=== PATIENT | male | born 1935 | race Caucasian/White ===

== ENCOUNTER → 2017-12-01 | Outpatient (CLI) | payer MEDICARE, BC ==
--- NOTE | 2017-12-01 09:04 | Diagnostic Imaging Report ---
PROCEDURE:ABDOMINAL ULTRASOUND COMPARISON:None. INDICATIONS:Abdomen pain FINDINGS: Liver: 14.4 cm in length in the right midclavicular line. Normal parenchymal echogenicity. Main portal vein: 0.9 cm in caliber. Hepatopedal flow. Gallbladder: Minimal echogenic sludge in the dependent portion. No shadowing calculus, wall thickening, or pericholecystic fluid. Common Bile Duct: 0.3 cm in caliber. No echogenic filling defect. Sonographic Sinclair's sign: Reported as negative. Right kidney: 12 cm in length. No solid or cystic mass, echogenic calculi, or hydronephrosis. Normal renal cortical echogenicity. Left kidney: 12.1 cm in length. No solid or cystic mass, echogenic calculi, or hydronephrosis. Normal renal cortical echogenicity. Spleen: 12.1 cm in length. Pancreas: The visualized portions of the pancreas are normal. Inferior vena cava: Patent. Aorta: Poorly visualized secondary to overlying bowel gas. Ascites: None. CONCLUSION: Small amount of echogenic sludge within the gallbladder. No cholelithiasis or sonographic evidence of acute cholecystitis. Dictated by: Nate Renae M.D. on 12/01/2017 at 9:12 Electronically approved by: Nate Renae M.D. on 12/01/2017 at 9:12
== END ==
LOC: US 07:31
PROVIDERS: ATTEND Internal Medicine Gastroenterology
DX: R10.9 Unspecified abdominal pain (principal)
CPT/HCPCS: 76700

== ENCOUNTER → 2017-12-09 | Outpatient (CLI) | payer MEDICARE, BC ==
[~2017-12-09] MED LIST: SINCALIDE 3 MCG/VIAL INJ ONE
--- NOTE | 2017-12-09 18:47 | Diagnostic Imaging Report ---
Hepatobiliary Scan with Gallbladder Ejection Fraction Clinical information: 82 M with abdominal pain; sludge seen in gallbladder on ultrasound Technique: Following intravenous administration of 6.6 millicuries of Tc-99m mebrofenin, dynamic images of the abdomen in the anterior projection were obtained through 30 minutes. Sincalide (CCK analog) 2.4 micrograms was administered intravenously over 30 minutes with additional imaging for determination of gallbladder ejection fraction. Discussion: Perfusion of the liver is normal. Extraction of tracer by the liver parenchyma is normal. Tracer appears promptly within the biliary tract. The gallbladder begins to fill at 18 minutes post injection of tracer and fills adequately. Tracer is seen in the small bowel during the sincalide infusion. There is no contractile response by the gallbladder to the pharmacologic dose of sincalide. No emptying of the gallbladder occurs during the 30 minute infusion. Impression: 1. Filling of the gallbladder excludes acute cystic duct obstruction/acute cholecystitis. 2. The gallbladder ejection fraction is undefined as there is no emptying of the gallbladder during the infusion of sincalide. 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 Signed by: Dr. Bia Dowd M.D. on 12/09/2017 6:43 PM
== END ==
LOC: NM 10:32
PROVIDERS: ATTEND Internal Medicine Gastroenterology
DX: K82.9 Disease of gallbladder, unspecified (principal)
CPT/HCPCS: 78227; A9537; J2805

== ENCOUNTER → 2018-01-25 | Outpatient (CLI) | payer MEDICARE, BC ==
[2018-01-25 11:01] LABS: BASOPHILS % 0.7 % (0.0-1.0); EOSINOPHILS # (AUTO) 0.2 (0.0-0.4); EOSINOPHILS % 2.7 % (0.0-6.0); HEMATOCRIT 43.2 % (38.2-49.6); HEMOGLOBIN 14.2 g/dL (14.0-18.0); LYMPHOCYTES # (AUTO) 1.5 (1.0-3.2); LYMPHOCYTES % 26.5 % (18.0-39.1); MEAN CORPUSCULAR HEMOGLOBIN 29.4 pg (28-32); MEAN CORPUSCULAR HGB CONC 32.9 g/dL (31-35); MEAN CORPUSCULAR VOLUME 89.4 fL (81-99); MONOCYTES # (AUTO) 0.6 (0.2-0.8); MONOCYTES % 10.4 % (4.4-11.3); NEUTROPHILS # (AUTO) 3.3 (2.1-6.9); NEUTROPHILS % 59.5 % (38.7-80.0); PLATELET COUNT 176 x10e3/uL (140-360); RED BLOOD COUNT 4.83 x10e6/uL (4.3-5.7); RED CELL DISTRIBUTION WIDTH 13.8 % (11.7-14.4)
[2018-01-25 11:21] LABS: ALANINE AMINOTRANSFERASE 11 IU/L (0-55); ALBUMIN 3.9 g/dL (3.5-5.0); ALBUMIN/GLOBULIN RATIO 1.1 (0.8-2.0); ALKALINE PHOSPHATASE 57 IU/L (40-150); BLOOD UREA NITROGEN 10 mg/dL (7-26); BUN/CREATININE RATIO 9 (6-25); CALCIUM 9.5 mg/dL (8.4-10.2); CARBON DIOXIDE 28 mmol/L (22-29); CHLORIDE 106 mmol/L (98-107); CHOLESTEROL 155 MD/DL (0-199); CREATININE, SERUM 1.14 mg/dL (0.72-1.25); EST GLOMERULAR FILTRATION RATE > 60 ML/MIN (60-); GLUCOSE 105 mg/dL (74-118); HDL CHOLESTEROL 52 MG/DL (40-60); LDL CHOLESTEROL 91 MG/DL (60-130); SODIUM 142 mmol/L (136-145); TRIGLYCERIDES 58 MG/DL (0-149)
== END ==
LOC: LAB 10:42
PROVIDERS: ATTEND Internal Medicine Pulmonary Disease
DX: E11.9 Type 2 diabetes mellitus without complications (principal)
CPT/HCPCS: 36415; 80053; 80061; 82044; 84152; 85025

== ENCOUNTER → 2018-08-25 | Outpatient (CLI) | payer MEDICARE, BC ==
[2018-08-25 09:31] LABS: FOLATE 17.8 ng/mL (7.0-15.4)
== END ==
LOC: LAB 08:21
PROVIDERS: ATTEND Internal Medicine Pulmonary Disease
DX: E53.8 Deficiency of other specified B group vitamins (principal)
CPT/HCPCS: 82607; 82746; 83090; 83921

== ENCOUNTER → 2018-09-03 | Outpatient (CLI) | payer MEDICARE, BC ==
[2018-09-03 08:30] LABS: BASOPHILS % 0.5 % (0.0-1.0); EOSINOPHILS # (AUTO) 0.2 (0.0-0.4); EOSINOPHILS % 3.6 % (0.0-6.0); HEMATOCRIT 45.1 % (38.2-49.6); HEMOGLOBIN 14.7 g/dL (14.0-18.0); LYMPHOCYTES # (AUTO) 1.5 (1.0-3.2); LYMPHOCYTES % 24.5 % (18.0-39.1); MEAN CORPUSCULAR HEMOGLOBIN 30.2 pg (28-32); MEAN CORPUSCULAR HGB CONC 32.6 g/dL (31-35); MEAN CORPUSCULAR VOLUME 92.8 fL (81-99); MONOCYTES # (AUTO) 0.6 (0.2-0.8); MONOCYTES % 10.2 % (4.4-11.3); NEUTROPHILS # (AUTO) 3.7 (2.1-6.9); NEUTROPHILS % 60.9 % (38.7-80.0); PLATELET COUNT 208 x10e3/uL (140-360); RED BLOOD COUNT 4.86 x10e6/uL (4.3-5.7); RED CELL DISTRIBUTION WIDTH 13.2 % (11.7-14.4)
[2018-09-03 08:51] LABS: ANION GAP 13.4 mmol/L (8-16); BLOOD UREA NITROGEN 7 mg/dL (7-26); BUN/CREATININE RATIO 7 (6-25); CALCIUM 9.7 mg/dL (8.4-10.2); CARBON DIOXIDE 27 mmol/L (22-29); CHLORIDE 106 mmol/L (98-107); CHOLESTEROL 150 MD/DL (0-199); CREATININE, SERUM 1.05 mg/dL (0.72-1.25); EST GLOMERULAR FILTRATION RATE > 60 ML/MIN (60-); GLUCOSE 84 mg/dL (74-118); POTASSIUM 4.4 mmol/L (3.5-5.1); SODIUM 142 mmol/L (136-145)
== END ==
LOC: LAB 08:04
PROVIDERS: ATTEND Internal Medicine Pulmonary Disease
DX: E11.9 Type 2 diabetes mellitus without complications (principal)
CPT/HCPCS: 36415; 80048; 82044; 82465; 83036; 84152; 85025

== ENCOUNTER 2019-02-05 11:33 | Inpatient (IN) | payer MEDICARE, BC ==
[~2019-02-05] VITALS: Ht 177.8 cm; Wt 102.1 kg
--- OUTSIDE RECORDS SUMMARY | 2019-02-05 11:35 | XMS REPORT ---
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 Allergies, Adverse Reactions, Alerts This patient has no known allergies or adverse reactions. Medications This patient has no known medications. Results Test Description Test Time Test Comments Text Results Atomic Results Result Comments HEPTOBILIARY W PHARM [place] [address] Patient Name: TORI INMAN MR #: [id number] : 1935 Age/Sex: 82/M Req #: [id number] Adm Physician: Ordered by: PEACE GONZALEZ MD Report #: [id number] Location: [place] Room/Bed: Procedure: [id number] NM/HEPTOBILIARY W PHARM Exam Date: 12/09/17 Exam Time: 1200 REPORT STATUS: Signed Hepatobiliary Scan with Gallbladder Ejection Fraction Clinical information: 82 M with abdominal pain; sludge seen in gallbladder on ultrasound Technique: Following intravenous administration of 6.6 millicuries of Tc-99m mebrofenin, dynamic images of the abdomen in the anterior projection were obtained through 30 minutes. Sincalide (CCK analog) 2.4 micrograms was administered intravenously over 30 minutes with additional imaging for determination of gallbladder ejection fraction. Discussion: Perfusion of the liver is normal. Extraction of tracer by the liver parenchyma is normal. Tracer appears promptly within the biliary tract. The gallbladder begins to fill at 18 minutes post injection of tracer and fills adequately. Tracer is seen in the small bowel during the sincalide infusion. There is no contractile response by the gallbladder to the pharmacologic dose of sincalide. No emptying of the gallbladder occurs during the 30 minute infusion. Impression: 1. Filling of the gallbladder excludes acute cystic duct obstruction/acute cholecystitis. 2. The gallbladder ejection fraction is undefined as there is no emptying of the gallbladder during the infusion of sincalide. 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 Signed by: Dr. Alonzo Dowd M.D. on 12/09/2017 6:43 PM Dictated By: ALONZO DOWD MD 42 Transcribed By: LYNDSEY on 12/09/171842 COPY TO: PEACE GONZALEZ MD US ABDOMEN COMPLETE [place] [address] Patient Name: TORI INMAN MR #: [id number] : 1935 Age/Sex: 82/M Req #: [id number] Adm Physician: Ordered by: PEACE GONZALEZ MD Report #: [id number] Location: US Room/Bed: Procedure: [id number] US/US ABDOMEN COMPLETE Exam Date: 12/01/17 Exam Time: 814 REPORT STATUS: Signed PROCEDURE: ABDOMINAL ULTRASOUND COMPARISON: None. INDICATIONS: Abdomen pain FINDINGS: Liver: 14.4 cm in length in the right midclavicular line. Normal parenchymal echogenicity. Main portal vein: 0.9 cm in caliber. Hepatopedal flow. Gallbladder: Minimal echogenic sludge in the dependent portion. No shadowing calculus, wall thickening, or pericholecystic fluid. Common Bile Duct: 0.3 cm in caliber. No echogenic filling defect. Sonographic Sinclair's sign: Reported as negative. Right kidney: 12 cm in length. No solid or cystic mass, echogenic calculi, or hydronephrosis. Normal renal cortical echogenicity. Left kidney: 12.1 cm in length. No solid or cystic mass, echogenic calculi, or hydronephrosis. Normal renal cortical echogenicity. Spleen: 12.1 cm in length. Pancreas: The visualized portions of the pancreas are normal. Inferior vena cava: Patent. Aorta: Poorly visualized secondary to overlying bowel gas. Ascites: None. CONCLUSION: Small amount of echogenic sludge within the gallbladder. No cholelithiasis or sonographic evidence of acute cholecystitis. Dictated by: Pablo Montgomery M.D. on 12/01/2017 at 9:12 Electronically approved by: Pablo Montgomery M.D. on 12/01/2017 at 9:12 Dictated By: PABLO MONTGOMERY MD 1 Transcribed By: JOSEY on 12/01/17911 COPY TO: PEACE GONZALEZ MD
[2019-02-05 12:26] LABS: BASOPHILS % 0.5 % (0.0-1.0); EOSINOPHILS # (AUTO) 0.2 (0.0-0.4); EOSINOPHILS % 1.8 % (0.0-6.0); HEMATOCRIT 43.6 % (38.2-49.6); HEMOGLOBIN 14.2 g/dL (14.0-18.0); LYMPHOCYTES # (AUTO) 1.1 (1.0-3.2); MEAN CORPUSCULAR HEMOGLOBIN 29.3 pg (28-32); MEAN CORPUSCULAR HGB CONC 32.6 g/dL (31-35); MEAN CORPUSCULAR VOLUME 90.1 fL (81-99); MONOCYTES % 11.8 % (4.4-11.3); NEUTROPHILS # (AUTO) 6.1 (2.1-6.9); NEUTROPHILS % 72.7 % (38.7-80.0); PLATELET COUNT 231 x10e3/uL (140-360); RED BLOOD COUNT 4.84 x10e6/uL (4.3-5.7); RED CELL DISTRIBUTION WIDTH 13.4 % (11.7-14.4)
[2019-02-05] MEDS ORDERED: DILTIAZEM HCL 5 MG/ML 5 ML VIAL IV NR (12:29)
[2019-02-05] MEDS ORDERED: SODIUM CHLORIDE 0.9% 500ML 500 ML IV ONE (12:30)
[2019-02-05] MEDS ORDERED: DILTIAZEM HCL VIAL 5 ML ONE (12:40)
--- NOTE | 2019-02-05 12:41 | NUR ---
RECEIVED REPORT FROM SANAZ Linares
[2019-02-05 12:44] LABS: INR 0.96; PROTHROMBIN TIME 13.3 seconds (11.9-14.5)
[2019-02-05 12:45] LABS: PARTIAL THROMBOPLASTIN TIME 37.6 seconds (23.8-35.5)
[2019-02-05 12:49] LABS: CLARITY,URINE CLEAR (CLEAR); COLOR,URINE YELLOW (YELLOW); KETONES,URINE NEGATIVE (NEGATIVE); LEUKOCYTE ESTERASE ,URINE NEGATIVE (NEGATIVE); NITRITE,URINE NEGATIVE (NEGATIVE); PROTEIN,URINE DIPSTICK NEGATIVE (NEGATIVE); URINE UROBILINOGEN 0.2 mg/dL (0.2 - 1)
[2019-02-05 12:49] LABS: ALANINE AMINOTRANSFERASE 9 IU/L (0-55); ALBUMIN 3.5 g/dL (3.5-5.0); ALKALINE PHOSPHATASE 67 IU/L (40-150); BLOOD UREA NITROGEN 8 mg/dL (7-26); BUN/CREATININE RATIO 9 (6-25); CALCIUM 9.6 mg/dL (8.4-10.2); CARBON DIOXIDE 25 mmol/L (22-29); CHLORIDE 103 mmol/L (98-107); CREATINE KINASE 37 IU/L (30-200); CREATININE, SERUM 0.92 mg/dL (0.72-1.25); EST GLOMERULAR FILTRATION RATE > 60 ML/MIN (60-); GLUCOSE 98 mg/dL (74-118); MAGNESIUM 1.8 MG/DL (1.3-2.1); SODIUM 137 mmol/L (136-145)
[2019-02-05 12:50] LABS: BILIRUBIN,URINE NEGATIVE (NEGATIVE)
[2019-02-05 13:11] LABS: EPITHELIAL CELLS,URINE MODERATE /LPF; WBC,URINE (MAN) 0-5 /HPF (0-5)
--- NOTE | 2019-02-05 13:54 | Diagnostic Imaging Report ---
EXAMINATION: CHEST SINGLE (PORTABLE) COMPARISON: None INDICATION: ^chest pain, SOB ^[id number] ^1306 ^Y DISCUSSION: Frontal view of the chest obtained at 1303 hours. HEART AND MEDIASTINUM: The heart is top normal in size to mildly enlarged. LINES: None. LUNGS: Lung volumes are low. There are right basilar airspace opacities suggestive of pneumonia or atelectasis. Pulmonary interstitium is normal. PLEURA: No pneumothorax. Small bilateral pleural effusions. BONES AND SOFT TISSUES: No focal osseous lesion. The soft tissues are normal. IMPRESSION: Low lung volumes with bibasilar atelectasis and small pleural effusions. Underlying pneumonia cannot be excluded. Cardiomegaly. No evidence of pulmonary edema. Signed by: Dr. Yanira Kong MD on 02/05/2019 1:50 PM
[2019-02-05] MEDS ORDERED: DILTIAZEM HCL 60 MG TAB PO SCH ×2 (14:00)
[2019-02-05] MEDS: ENOXAPARIN SODIUM INJ 100 MG/ML SYR SC SCH (14:18)
[2019-02-05] MEDS ORDERED: DILTIAZEM HCL ER 120 MG CAP PO NR (15:45)
[2019-02-05] MEDS ORDERED: MORPHINE SULFATE 2 MG/ML SYR 1ML IV PRN (15:45)
[2019-02-05] MEDS ORDERED: DEXTROSE 50% SYRINGE 50 ML IV PRN (15:45)
--- NOTE | 2019-02-05 16:13 | Diagnostic Imaging Report ---
CT chest pulmonary embolism protocol CPT code: 91038 INDICATION: ^PE PROTOCOL ^[id number] ^1430 TECHNIQUE: Thin collimation axial images obtained through the level of the pulmonary arteries with additional imaging through the chest following the uneventful administration of 100 cc of low osmolar, nonionic intravenous contrast. Images reconstructed into coronal and sagittal MIPs for complete evaluation of the tortuous and overlapping pulmonary vascular structures and to reduce patient radiation dose. RADIATION DOSE: Total DLP: 602.82 mGy*cm Estimated effective dose: (DLP x 0.015 x size factor) mSv CTDIvol has been reviewed. It is below the limits set by the Radiation Protocol Committee (RPC). Dose reduction techniques used: Automated exposure control, adjustment of the mAs and/or kVp according to patient size, standardized low-dose protocol, and/or iterative reconstruction technique. COMPARISON: Chest x-ray 1303 hours. FINDINGS: Pulmonary artery: No filling defects are appreciated within the main, left, right, lobar or visualized segmental pulmonary arteries to suggest embolism. Main pulmonary artery measures 2.4 cm in diameter. Aorta: The thoracic aorta is not aneurysmal with diffuse mural calcifications. Lymph nodes: No enlarged axillary or supraclavicular lymph nodes. Mediastinal lymph nodes are increased in number and measure up to 1.3 cm in the AP window. A right paratracheal lymph node measures 1.4 cm. Hilar lymph nodes measure up to 1.2 cm. Thyroid: Normal in size without mass in the visualized parenchyma.. Mediastinum: The heart is enlarged. No pericardial effusion. Moderate burden of coronary artery atherosclerosis. The esophagus is collapsed. Lungs: Right Lung: Diffusely hyperinflated at baseline with mild interstitial thickening and diffuse bronchial wall thickening. There is rounded atelectasis of the majority of the lower lobe and atelectasis of the lateral aspect of the middle lobe.. Left Lung: Diffusely hyperinflated baseline with mild interstitial thickening and diffuse bronchial wall thickening. There is lower lobe atelectasis surrounding multiple uptake calcified granulomata. Pleura: Posterior and lateral right pleural effusion measures 5.2 cm. There is mild thickening of the parietal pleura suggestive of chronicity. Left pleural effusion measures 3.1 cm. No enhancement of the visceral or parietal pleura. No conclusive evidence of pleural thickening. Abdomen: Fatty atrophy of the pancreas. No mass or lymphadenopathy in the visualized upper abdomen. Bones: Mild degenerative changes of the spine. No focal osseous lesions. IMPRESSION: 1. No evidence of pulmonary embolus. Prominent main pulmonary artery is suggestive of pulmonary artery hypertension. 2. Large right pleural effusion with mild pleural thickening suggestive of chronicity. There is rounded atelectasis of the right lower lobe and partial atelectasis of the middle lobe. 3. Moderate sized left pleural effusion with associated atelectasis. No CT evidence of long-standing effusion. 4. Interstitial edema and bronchial wall thickening suggestive of bronchitis. Pulmonary hyperinflation suggestive of COPD. 4. Cardiomegaly and atherosclerosis. Signed by: Dr. Yanira Kong MD on 02/05/2019 4:09 PM
[2019-02-05] MEDS ORDERED: DEXTROSE 50% SYRINGE 50 ML IV ONE (16:19)
--- NOTE | 2019-02-05 16:26 | NUR ---
PEDRO LUIS Linares CALLED BACK TO UPDATE ON PATIENTS MEDICATION AND BLOOD SUGAR K[employer]EN CALLED FOR FOOD TRAY, PATIENT GIVEN 1/[address] HALL EVALUATING PATIENT
[2019-02-05] MEDS ORDERED: LISINOPRIL2.5 MG PO (16:30)
[2019-02-05] MEDS: INSULIN LISPRO 100 UNIT/1 ML 3ML VIAL SQ SCH ×2 (16:30→21:00)
[2019-02-05] MEDS ORDERED: TAMSULOSIN HCL0.4 MG PO (16:30)
[2019-02-05] MEDS ORDERED: PRAVASTATIN SOD20 MG PO (16:30)
[2019-02-05] MEDS ORDERED: OMEPRAZOLE40 MG PO (16:30)
[2019-02-05] MEDS ORDERED: GLIPIZIDE ER5 MG PO (16:30)
--- NOTE | 2019-02-05 16:40 | NUR ---
Patient admitted to unit from ER. Patient arrived via stretcher. Patient is AOOx3. Lung mckeon clear to auscultation. Bowel sounds present x4. No edema noted. Patient c/o chest pain that started yesterday noted to the left side of chest. No radiating pain. Left forearm IV in place. Patient has a hearing aide in the left ear, wears glasses and dentures. Family at bedside. NO s/s of distress noted.
--- NOTE | 2019-02-05 17:00 | NUR ---
Call placed to Dr. Hamlin to inform of CT results. informed that he would come by later to round and see patient
[2019-02-05 17:24] VITALS: BP 134/77
[2019-02-05 17:27] VITALS: BP 134/77
[2019-02-05] MEDS ORDERED: ASPIR 8181 MG PO (17:57)
[2019-02-05] MEDS: FAMOTIDINE 20 MG/2 ML VIAL IV SCH (18:10)
--- NOTE | 2019-02-05 19:50 | NUR ---
DR GONZALES IN UNIT ROUNDING ON PT AT THIS TIME,NOTIFIED DR GONZALES OF PT BP 170/76,DR GONZALES STATED THAT HE WILL RESTART PT'S HOME MEDICATIONS.
[2019-02-05] MEDS: FUROSEMIDE INJ 10 MG/ML 4 ML VIAL IV SCH (20:45)
[2019-02-05] MEDS: TAMSULOSIN HCL 0.4 MG CAP PO SCH (20:46)
[2019-02-05 20:47] VITALS: BP 134/77
[2019-02-05] MEDS: PRAVASTATIN 20 MG TAB PO SCH (20:47)
[2019-02-05 20:53] VITALS: BP 170/76
[2019-02-05 21:01] LABS: CREATINE KINASE MB 1.1 ng/mL (0-5.0)
[2019-02-06] VITALS (8 sets, daily range): BP systolic 119–150; BP diastolic 65–82
[2019-02-06] MEDS: IPRATROPIUM BROMIDE 0.02% 2.5 ML NEB NEB SCH ×4 (00:15→21:00)
[2019-02-06] MEDS: ENOXAPARIN SODIUM INJ 100 MG/ML SYR SC SCH (02:09)
[2019-02-06] MEDS: FAMOTIDINE 20 MG/2 ML VIAL IV SCH ×2 (04:30→15:46)
[2019-02-06 05:53] LABS: BASOPHILS # (AUTO) 0.1 (0.0-0.1); BASOPHILS % 0.7 % (0.0-1.0); EOSINOPHILS # (AUTO) 0.2 (0.0-0.4); EOSINOPHILS % 2.8 % (0.0-6.0); HEMATOCRIT 40.4 % (38.2-49.6); HEMOGLOBIN 13.3 g/dL (14.0-18.0); LYMPHOCYTES # (AUTO) 1.3 (1.0-3.2); MEAN CORPUSCULAR HEMOGLOBIN 29.7 pg (28-32); MEAN CORPUSCULAR HGB CONC 32.9 g/dL (31-35); MEAN CORPUSCULAR VOLUME 90.2 fL (81-99); MONOCYTES # (AUTO) 1.2 (0.2-0.8); MONOCYTES % 16.1 % (4.4-11.3); NEUTROPHILS # (AUTO) 4.5 (2.1-6.9); NEUTROPHILS % 62.1 % (38.7-80.0); PLATELET COUNT 223 x10e3/uL (140-360); RED BLOOD COUNT 4.48 x10e6/uL (4.3-5.7); RED CELL DISTRIBUTION WIDTH 13.4 % (11.7-14.4)
[2019-02-06 06:16] LABS: ALANINE AMINOTRANSFERASE 9 IU/L (0-55); ALBUMIN 3.1 g/dL (3.5-5.0); ALBUMIN/GLOBULIN RATIO 0.9 (0.8-2.0); ALKALINE PHOSPHATASE 58 IU/L (40-150); ANION GAP 9.7 mmol/L (8-16); BLOOD UREA NITROGEN 9 mg/dL (7-26); BUN/CREATININE RATIO 10 (6-25); CALCIUM 9.4 mg/dL (8.4-10.2); CARBON DIOXIDE 26 mmol/L (22-29); CHLORIDE 100 mmol/L (98-107); CHOL/HDL RATIO 2.7 (3.9-4.7); CHOLESTEROL 128 MD/DL (0-199); CREATININE, SERUM 0.89 mg/dL (0.72-1.25); EST GLOMERULAR FILTRATION RATE > 60 ML/MIN (60-); GLUCOSE 100 mg/dL (74-118); HDL CHOLESTEROL 48 MG/DL (40-60); LDL CHOLESTEROL 66 MG/DL (60-130); POTASSIUM 3.7 mmol/L (3.5-5.1); SODIUM 132 mmol/L (136-145); TRIGLYCERIDES 69 MG/DL (0-149)
--- NOTE | 2019-02-06 07:02 | NUR ---
REPORT GIVEN TO ONCOMING NURSE,WALKING ROUNDS MADE.PT RESTING IN BED WITH NO S/S OF DISTRESS.
--- NOTE | 2019-02-06 07:18 | NUR ---
Rcvd patient in report this am. Patient is asleep in bed at this time. no s/s of distress noted
[2019-02-06 07:21] LABS: CREATINE KINASE MB 0.8 ng/mL (0-5.0)
[2019-02-06] MEDS: INSULIN LISPRO 100 UNIT/1 ML 3ML VIAL SQ SCH ×4 (07:30→20:52)
[2019-02-06] MEDS: FUROSEMIDE INJ 10 MG/ML 4 ML VIAL IV SCH (08:58)
[2019-02-06] MEDS: ASPIRIN 81 MG ENTERIC COATED PO SCH (08:58)
[2019-02-06] MEDS: LISINOPRIL 2.5 MG TAB PO SCH (08:58)
[2019-02-06] MEDS: PANTOPRAZOLE SOD 40 MG TABEC PO SCH (08:58)
[2019-02-06] MEDS: DILTIAZEM HCL ER 120 MG CAP PO SCH (08:58)
--- NOTE | 2019-02-06 08:58 | History and Physical ---
CHIEF COMPLAINT: Shortness of breath. HISTORY OF PRESENT ILLNESS: Mr. Sandoval is an 83-year-old male, regular patient of Dr. Nate Bettencourt. The patient came in with shortness of breath, going on for 2 days, yet last night was worse, so he decided to come into the emergency room. 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 He quit smoking 30 years ago. He denies any chest pain, nausea, or vomiting. He was in atrial fibrillation when he came in. He underwent a CTA of the chest in the emergency room, which showed no pulmonary embolism, however, it showed bilateral pleural effusion, large right-sided effusion with pleural thickening, also round atelectasis. He is short of breath on exertion, but right now he is stable. His heart rate is in the 70s and is irregular. He is in atrial fibrillation. REVIEW OF SYSTEMS: GENERAL: Denies any fever or chills. HEAD: Denies any head trauma. ENT: Denies any earaches. CVS: Denies any chest pain. RESPIRATORY: Shortness of breath. GI: Denies any nausea or vomiting. The rest of the review of systems are negative except as stated in the HPI. PAST MEDICAL HISTORY: Asbestos exposure, possible COPD, diabetes, and hypertension. PAST SURGICAL HISTORY: Rotator cuff surgery. FAMILY AND SOCIAL HISTORY: Ex-smoker, smoked for 30 years, quit in 1997. History of asbestos exposure. Lives with his . Currently does not work. PHYSICAL EXAMINATION: VITAL SIGNS: Temperature 97.3, pulse of 98, blood pressure 134/77, respiratory rate of 18, and O2 saturation 97% on room air. HEENT: Head is atraumatic, normocephalic. CHEST: Reduced air entry bilaterally and crackles on the bases. HEART: S1 and S2 audible. ABDOMEN: Soft and nontender. EXTREMITIES: No pedal edema. NEUROLOGIC: He is awake and alert. LABORATORY DATA: Sodium 137, potassium 4.0, chloride 103, BUN 8, and creatinine 0.92. BNP 283. White count of 8.4, hemoglobin 14.2, and platelets 231. INR is 13.3. CT of the chest, negative for PE, large pleural effusions. ASSESSMENT/PLAN: Mr. Sandoval is an 83-year-old male with shortness of breath, no fever or chills, bilateral pleural effusions, history of asbestos exposure, no history of cardiomyopathy or heart disease and no history of atrial fibrillation. CURRENT PROBLEMS: 1. New onset atrial fibrillation, possibly could be due to dyspnea and bilateral pleural effusions. 2. Bilateral pleural effusions, may have developed congestive heart failure. Echocardiogram has been ordered. 3. History of asbestos exposure that could have caused pleural effusions as well. 4. Possible history of chronic obstructive pulmonary disease. He is ex-smoker. 5. Hypertension. PLAN: 1. I have counseled for thoracentesis. 2. Cardiology consult for new onset atrial fibrillation. 3. We will start the patient on anticoagulation with Lovenox. 4. I will start the patient on IV Lasix as well. 5. Sliding scale insulin for diabetes. 6. Resume home medicines. Discussed with the patient's at bedside. MD JD Paul/SUDHIR /[id number]
[2019-02-06] MEDS ORDERED: GLIPIZIDE 5 MG TAB ER PO SCH (09:00)
[2019-02-06] MEDS ORDERED: ASPIRIN 81 MG CHEW TAB PO SCH (09:00)
--- NOTE | 2019-02-06 11:33 | NUR ---
Patient is AAOx3. Patient is hard of hearing and wears hearing aid in his left ear. Lung mckeon clear to auscultation. No shortness of breath noted at this time. Bowel sounds present x4. No edema noted. Patient ambulates on his own. Left forearm 18G IV in place. No s/s of distress noted
[2019-02-06] MEDS ORDERED: METOLAZONE 5 MG TAB PO ONE (12:15)
[2019-02-06] MEDS: AMIODARONE HCL 200 MG TAB PO SCH (17:19)
[2019-02-06] MEDS: TAMSULOSIN HCL 0.4 MG CAP PO SCH (20:52)
[2019-02-06] MEDS: PRAVASTATIN 20 MG TAB PO SCH (20:52)
[2019-02-06] MEDS ORDERED: FUROSEMIDE INJ 10 MG/ML 4 ML VIAL IV SCH (21:00)
[2019-02-07] VITALS (7 sets, daily range): BP systolic 103–139; BP diastolic 61–79
--- NOTE | 2019-02-07 00:06 | Consultation ---
DATE OF CONSULTATION: 02/06/2019 REASON FOR CONSULTATION: AFib. HISTORY OF PRESENT ILLNESS: This is an 83-year-old male with history of diabetes, hypertension, hyperlipidemia, BPH, asbestos exposure, pleural plaques, being followed by Dr. Bettencourt. The patient presents to [facility] ER with complaints of shortness of breath, mild chest pain with deep breathing, cough for about 4 to 5 days. Denies any fevers or chills. He was noted to be in AFib. Cardiology was consulted for evaluation. The patient is seen in room. Reports off and on shortness of breath and palpitations for several weeks, however, in the past 4 to 5 days, shortness of breath and intermittent palpitations have worsened, therefore, he came to the ER for further evaluation. CT of the chest showed no PE, but however showed bilateral pleural effusions, right greater than left. EKG showed AFib with RVR, heart rates in the 119s or so. The patient now is on tele with heart rates anywhere from 70s to one-teens. The patient denies any exertional chest pain, however, positive for shortness of breath and intermittent palpitations. Denies any orthopnea or PND. PAST MEDICAL HISTORY: Diabetes, hypertension, hyperlipidemia, BPH, asbestos exposure. SURGICAL HISTORY: Right shoulder surgery and circumcision. SOCIAL HISTORY: He is . 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 He quit tobacco use in 1987. He reports smoking 2-3 packs a day for over 20 years. Positive for alcohol use, anywhere from 3 to 4 beers per day for most days of the week. HOME MEDICATIONS: Include aspirin 81 mg once a day, glimepiride 10 mg once a day, lisinopril 5 mg once a day, omeprazole 20 mg once a day, pravastatin 20 mg once a day, Flomax 0.4 mg once a day. ALLERGIES: NO KNOWN ALLERGIES. REVIEW OF SYSTEMS: GENERAL: Denies any weight change, any fatigue, weakness, fevers, chills, night sweats, or skin rashes. Denies any HEENT: Denies any vision changes, any blurred vision, double vision, any epistaxis, any sore throat, swollen neck, or hoarseness. CARDIAC: Positive for dyspnea on exertion. Positive for chest pain as well. Positive for intermittent palpitations. Denies any orthopnea, PND, or lower extremity edema. RESPIRATORY: Positive for shortness of breath. Positive for cough, nonproductive. Denies any hemoptysis. GI: Good appetite. No nausea or vomiting, bleeding, hematemesis, melena, or any abdominal pain. URINARY: Positive for frequency and urgency. Denies any hematuria or dysuria. VASCULAR: Denies any lower extremity edema or claudication. MUSCULOSKELETAL: Positive for generalized joint pains, or back pains. NEUROLOGIC: Denies any numbness or tingling, any tremors, weakness, paralysis, fainting, blackouts, or seizures. HEMATOLOGIC: Denies any bruising or bleeding. ENDOCRINE: Denies any heat or cold intolerance. polyuria, polydipsia, or polyphagia. PHYSICAL EXAMINATION: VITAL SIGNS: Height 70 inches, weight 223 pounds, temperature 96.2, pulse 99, respiratory rate 18, blood pressure 137/68, pulse ox 95% on room air. GENERAL: Appears his stated age, reliable informant, in no acute distress. SKIN: No rashes or bruises noted. HEENT: Normocephalic. Pupils are equal and reactive. Extraocular movements are intact. Trachea midline. Oral mucosa pink. NECK: No thyromegaly noted. No JVD. No carotid bruit noted. HEART: Irregular rate and rhythm. Soft systolic murmur heard in the right upper sternal border. LUNGS: Bilateral breath sounds diminished at the bases, right greater than left. Some crackles noted throughout. ABDOMEN: Soft, nontender, nondistended. No organomegaly noted. MUSCULOSKELETAL: Good muscle strength throughout. VASCULAR: radial pulses, +1 DP and PT pulses bilaterally. NEUROLOGIC: Cranial nerves II through XII seem intact. LABORATORY DATA: White count is 7, hemoglobin 13, hematocrit 40, platelets 223. Sodium 132, potassium 3.7, bicarbonate 26, BUN 9, creatinine 0.8. Troponin 0.02, 0.3, 0.01. TSH 2.3. CT of the chest, no evidence of pulmonary embolism, however, there is a large right pleural effusion with pleural thickening, interstitial edema, and bronchial wall thickening suggestive of bronchitis. Chest x-ray, small pleural effusions. ASSESSMENT: 1. Atrial fibrillation with rapid ventricular rate. 2. Bilateral pleural effusions, right greater than left. 3. Hypertension. 4. Hyperlipidemia. 5. Diabetes. 6. Alcohol use. PLAN: 1. The patient presents with shortness of breath, cough, some chest pain. Enzymes negative. Currently, on tele, the patient is in AFib. 2. We will try rate and rhythm control with amiodarone therapy and continue discussed with the patient, however, we will hold off for now since the patient has pleural effusion and planned for thoracentesis tomorrow. 3. We will continue the patient on telemonitoring. 4. We will go ahead and get an echo to evaluate heart function and structure. 5. We will continue to monitor the patient and adjust cardiac therapy as clinical course dictates. Thank you very much for this consult. Dictated by Nate Archibald NP Yung Escoto MD DC/SUDHIR /[id number]
[2019-02-07] MEDS: IPRATROPIUM BROMIDE 0.02% 2.5 ML NEB NEB SCH ×4 (01:00→18:32)
[2019-02-07] MEDS: FAMOTIDINE 20 MG/2 ML VIAL IV SCH ×2 (04:08→15:45)
--- NOTE | 2019-02-07 07:26 | NUR ---
REPORT GIVEN TO ONCOMING NURSE,WALKING ROUNDS DONE.PT RESTING IN BED WITH NO S/S OF DISTRESS.
[2019-02-07] MEDS: INSULIN LISPRO 100 UNIT/1 ML 3ML VIAL SQ SCH ×4 (07:30→21:00)
[2019-02-07] MEDS: GLIPIZIDE 5 MG TAB ER PO SCH (07:45)
[2019-02-07] MEDS: ASPIRIN 81 MG ENTERIC COATED PO SCH (09:00)
[2019-02-07] MEDS: DILTIAZEM HCL ER 120 MG CAP PO SCH ×2 (09:00→12:45)
[2019-02-07] MEDS: PANTOPRAZOLE SOD 40 MG TABEC PO SCH (09:00)
[2019-02-07] MEDS: LISINOPRIL 2.5 MG TAB PO SCH (09:00)
[2019-02-07] MEDS: FUROSEMIDE INJ 10 MG/ML 4 ML VIAL IV SCH (09:00)
--- NOTE | 2019-02-07 09:16 | NUR ---
EDUCATED ABOUT IMM, SIGNED, FILED IN CHART, WITH COPY LEFT WITH FAMILY AT BEDSIDE.
[2019-02-07] MEDS: AMIODARONE HCL 200 MG TAB PO SCH ×2 (09:45→17:35)
--- NOTE | 2019-02-07 12:48 | NUR ---
MD CHACKO INTO SEE PT, DISCUSSED POC, AWARE PT THORACENTESIS PENDING, ORDERS NOTED TO GIVE DOSE OF CARDIZEM NOW
--- NOTE | 2019-02-07 15:15 | NUR ---
PT WHEELED OFF UNIT VIA WC FOR THORACENTESIS, NO CHANGE IN CONDITION, FAMILY IN ROOM
--- NOTE | 2019-02-07 15:52 | NUR ---
PT BACK IN ROOM VIA WC FROM THORACENTESIS, PER [facility] NURSE, "600ML OUT BRICK RED IN COLOR", DRESSING TO LEFT UPPER BACK INTACT WITH SMALL CIRCULAR AREA OF BLOODY DRAINAGE NOTED, PT AA&OX3, RA, DENIES PAIN AT THIS TIME, REQUESTING FOOD, CALL LIGHT WITHIN REACH, FAMILY AT SIDE
--- NOTE | 2019-02-07 16:03 | Diagnostic Imaging Report ---
EXAM: CHEST XRAY POST PROCEDURE, AP Portable DATE: 02/07/2019 Time stamp on exam: 3:47 PM INDICATION: Postthoracentesis COMPARISON: 02/05/2019 FINDINGS: LINES/TUBES: None LUNGS: No consolidations or edema. Right basilar subsegmental atelectasis. PLEURA: Decrease in the size of the left pleural effusion. No pneumothorax. Moderate right pleural effusion persists. HEART AND MEDIASTINUM: The heart is mildly enlarged. BONES AND SOFT TISSUES: No acute findings. IMPRESSION: 1. Persistent right pleural effusion. 2. Decrease in the size of the left pleural effusion; status post left thoracentesis. Signed by: Dr. Ajith Anne DO on 02/07/2019 4:00 PM
--- NOTE | 2019-02-07 16:09 | Diagnostic Imaging Report ---
PROCEDURE: ULTRASOUND GUIDED THORACENTESIS COMPARISON: [facility], CT, CT CHEST W, 02/05/2019, 14:43. INDICATIONS: Atrial fibrillation with shortness of breath FINDINGS: After informed consent was obtained, the patient was placed in the sitting position and preliminary ultrasound of the posterior chest identified a safe route into the left pleural effusion. The overlying skin was prepped and draped in usual sterile fashion. Lidocaine 1% was used for local anesthesia. Under ultrasound guidance, a 5 Tongan centesis needle was advanced into the pleural fluid and 600 cc were aspirated. The patient tolerated the procedure well and there were no immediate post-procedural complications. A post-thoracentesis chest radiograph will be obtained. The specimen was sent to the laboratory for analysis. CONCLUSION: Uncomplicated ultrasound-guided left thoracentesis with removal of 600 cc's of fluid. Ajith Anne D.O. Dictated by: Ajith Anne D.O. on 02/07/2019 at 16:22 Electronically approved by: Ajith Anne D.O. on 02/07/2019 at 16:22
--- NOTE | 2019-02-07 16:41 | NUR ---
Nutrition Screen Note RD Recommendation for Physician: - Resume 1800 ADA diet post procedure Plan of Care: RD following, monitoring for tolerance and adequacy Nutrition reason for involvement: Nutrition Risk Trigger- MST Primary Diagnose(s): afib with RVR, chest pain PMH: asbestos exposure, possible COPD, DM, HTN Ht: 70 in Wt: 218 lb BMI: 31.3 kg/m2 IBW: [address] Assessment: (02/07) 83 YOM admitted for afib with RVR and chest pain, pt evaluated today per MST score. Pt discussed during AM rounds. Pt out of room at time of attempted visits for thoracentesis. Pt's at bedside reports good appetite and po intake SLUNK SKINNER and prior to diet hold for procedure. Pt's denies pt has had any N/V/C/D or difficulties chewing or swallowing. Pt's reports UBW of 205-210#, no wt loss noted. LBM 02/05. Skin intact. Chart reviewed. Labs and meds reviewed. Will monitor and continue to follow. Current Diet: NPO- for procedure Malnutrition Evaluation (02/07/19) The patient does not meet criteria for a specified degree of malnutrition at this time. Will re-evaluate at follow-up as appropriate. Diet Education Needs Assessment: Diet education not indicated. Nutrition Care Level: Low Signed: Amy Banegas RD, LD, [facility]
[2019-02-07 16:47] LABS: BODY FLUID APPEARANCE SL.CLOUDY; BODY FLUID COLOR YELLOW; BODY FLUID TYPE PLEURAL
[2019-02-07 16:57] LABS: RBC,BODY FLUID 1010 cells/uL; WBC,BODY FLUID 83 cells/uL
[2019-02-07 17:38] LABS: LYMPHOCYTES,BODY FLUID 31 %; MONO/MACROPHG,BODY FLUID 25 %; NEUTROPHILS,BODY FLUID 44 %
--- NOTE | 2019-02-07 17:53 | NUR ---
PT SITTING IN BS CHAIR, DINNER TRAY SET UP, TOLERATING AT THIS TIME, PT DRESSING TO LEFT UPPER BACK INTACT WITH SMALL AK CHIN OF BLOODY DRAINAGE NOTED, CALL LIGHT WITHIN REACH
[2019-02-07] MEDS: TAMSULOSIN HCL 0.4 MG CAP PO SCH (20:11)
[2019-02-07] MEDS: PRAVASTATIN 20 MG TAB PO SCH (20:11)
[2019-02-08] VITALS (11 sets, daily range): BP systolic 98–148; BP diastolic 51–79
[2019-02-08] MEDS: IPRATROPIUM BROMIDE 0.02% 2.5 ML NEB NEB SCH ×4 (00:55→20:34)
[2019-02-08] MEDS: ENOXAPARIN SODIUM INJ 100 MG/ML SYR SC SCH (02:14)
[2019-02-08] MEDS: FAMOTIDINE 20 MG/2 ML VIAL IV SCH ×2 (03:42→16:42)
[2019-02-08 06:09] LABS: ANION GAP 11.5 mmol/L (8-16); BLOOD UREA NITROGEN 17 mg/dL (7-26); BUN/CREATININE RATIO 16 (6-25); CALCIUM 8.6 mg/dL (8.4-10.2); CARBON DIOXIDE 27 mmol/L (22-29); CHLORIDE 102 mmol/L (98-107); CREATININE, SERUM 1.09 mg/dL (0.72-1.25); EST GLOMERULAR FILTRATION RATE > 60 ML/MIN (60-); GLUCOSE 119 mg/dL (74-118); POTASSIUM 4.5 mmol/L (3.5-5.1); SODIUM 136 mmol/L (136-145)
--- NOTE | 2019-02-08 07:21 | NUR ---
PATIENT SITTING AT BED SIDE WATCHING TV, NO RESPIRATORY DISTRESS OBSERVED. DRESSING DRY AND INTACT TO LEFTUPPER BACK. BED IN LOWER POSITION, CALL LIGHT AT REACH.
[2019-02-08] MEDS: INSULIN LISPRO 100 UNIT/1 ML 3ML VIAL SQ SCH ×4 (07:30→21:24)
[2019-02-08] MEDS: GLIPIZIDE 5 MG TAB ER PO SCH (08:02)
[2019-02-08] MEDS: ASPIRIN 81 MG ENTERIC COATED PO SCH (09:19)
[2019-02-08] MEDS: FUROSEMIDE INJ 10 MG/ML 4 ML VIAL IV SCH (09:19)
[2019-02-08] MEDS: DILTIAZEM HCL ER 120 MG CAP PO SCH (09:20)
[2019-02-08] MEDS: AMIODARONE HCL 200 MG TAB PO SCH ×2 (09:20→17:00)
[2019-02-08] MEDS: PANTOPRAZOLE SOD 40 MG TABEC PO SCH (09:20)
[2019-02-08] MEDS: LISINOPRIL 2.5 MG TAB PO SCH (09:20)
--- NOTE | 2019-02-08 12:00 | NUR ---
PATIENT OUT OF BED TO CHAIR. REQUESTED AND RECEIVED A CUP OF WATER. CALL LIGHT AT REACH.
[2019-02-08] MEDS: METOPROLOL TARTRATE 50 MG TAB PO SCH (13:01)
--- NOTE | 2019-02-08 14:14 | NUR ---
PATIENT OFF UNIT TO RADIOLOGY FOR A PROCEDURE.
[2019-02-08] MEDS ORDERED: SODIUM CHLORIDE 0.9% 500ML 1,000 ML ONE (15:22)
--- NOTE | 2019-02-08 15:25 | NUR ---
PATIENT BECAME HYPOTENSIVE DURING THE PROCEDURE AND RAPID RESPONSE WAS CALLED. BACK TO UNIT AT THIS TIME, ALERT AND VERBALLY RESPONSIVE, STATED " I AM FEELING BETTER". RECEIVED 500CC OF NS BOLUS IN RADIOLOGY, A SECOND BAG OF 500CC IN PROGRESS. B/P 81/[address] AT BED SIDE, NEW ORDERS RECEIVED. WILL CLOSELY MONITOR.
[2019-02-08] MEDS ORDERED: NITROGLYCERIN 0.4 MG SUBL ONE (15:33)
[2019-02-08] MEDS ORDERED: KETOROLAC TROMETHAMINE 30 MG/ML VIAL IV NR (15:35)
[2019-02-08 15:39] LABS: BASOPHILS # (AUTO) 0.1 (0.0-0.1); BASOPHILS % 0.6 % (0.0-1.0); EOSINOPHILS # (AUTO) 0.3 (0.0-0.4); EOSINOPHILS % 3.2 % (0.0-6.0); LYMPHOCYTES # (AUTO) 2.4 (1.0-3.2); LYMPHOCYTES % 23.1 % (18.0-39.1); MEAN CORPUSCULAR HEMOGLOBIN 29.9 pg (28-32); MEAN CORPUSCULAR HGB CONC 32.6 g/dL (31-35); MEAN CORPUSCULAR VOLUME 91.9 fL (81-99); MONOCYTES # (AUTO) 1.3 (0.2-0.8); MONOCYTES % 12.5 % (4.4-11.3); NEUTROPHILS # (AUTO) 6.3 (2.1-6.9); NEUTROPHILS % 60.3 % (38.7-80.0); PLATELET COUNT 279 x10e3/uL (140-360); RED BLOOD COUNT 4.68 x10e6/uL (4.3-5.7); RED CELL DISTRIBUTION WIDTH 13.3 % (11.7-14.4)
[2019-02-08] MEDS ORDERED: NITROGLYCERIN 0.4 MG SUBL SL PRN (15:45)
--- NOTE | 2019-02-08 15:49 | NUR ---
B/P 99/55 AND HR 66 WITH 100% AT 2L VIA N/C. TORADOL 30 MG ADMINISTERED ORDERED FOR RIGHT CHEST PAIN. 2ND BAG OF 500 CC NS COMPLETED. IN BED RESTING WITH NO RESPIRATORY DISTRESS. CALL LIGHT AT REACH. WILL CLOSELY MONITOR. AT BED SIDE.
[2019-02-08 16:01] LABS: ALANINE AMINOTRANSFERASE 7 IU/L (0-55); ALBUMIN/GLOBULIN RATIO 0.9 (0.8-2.0); ALKALINE PHOSPHATASE 54 IU/L (40-150); ANION GAP 11.3 mmol/L (8-16); BLOOD UREA NITROGEN 19 mg/dL (7-26); BUN/CREATININE RATIO 17 (6-25); CALCIUM 8.4 mg/dL (8.4-10.2); CARBON DIOXIDE 24 mmol/L (22-29); CHLORIDE 104 mmol/L (98-107); CREATINE KINASE 25 IU/L (30-200); CREATININE, SERUM 1.15 mg/dL (0.72-1.25); EST GLOMERULAR FILTRATION RATE > 60 ML/MIN (60-); GLUCOSE 108 mg/dL (74-118); POTASSIUM 4.3 mmol/L (3.5-5.1); SODIUM 135 mmol/L (136-145)
[2019-02-08] MEDS: MORPHINE SULFATE INJ 4 MG/ML INJ 1ML IV PRN (16:40)
[2019-02-08] MEDS: ONDANSETRON HCL INJ 2MG/ML 2ML 2 MG/ML VIAL IV PRN (16:40)
--- NOTE | 2019-02-08 16:44 | NUR ---
PATIENT CONTINUED TO C/O RIGHT CHEST PAIN. MD NOTIFIED, NEW ORDERS RECEIVED AND IMPLEMENTED. V/S 96.3-71-20-100/57 AND 100% ON 2L VIA N/C. WILL CLOSELY MONITOR.
--- NOTE | 2019-02-08 17:05 | NUR ---
DR DOBBS IN TO SEE PATIENT, NEW ORDER RECEIVED TO TRANSFER PATIENT IN ICU. ICU CHARGE NURSE CALLED AND NOTIFIED.
--- NOTE | 2019-02-08 17:06 | Diagnostic Imaging Report ---
Procedure: Ultrasound-guided right diagnostic and therapeutic thoracentesis. radioisotope production operator: Harsh Mckeon MD Pre-operative diagnosis: Large right pleural effusion Post-operative diagnosis: Small right pleural effusion status post thoracentesis. Conscious Sedation: None Additional Medications: Lidocaine 1% for local anesthesia Contrast used: None Estimated blood loss: <5 cc Blood proximal administered: None Specimens: 800 cc serous fluid Implants: None Condition at completion: Hypotensive post procedurally, see below. Disposition: Per rapid response team. DISCUSSION: Informed consent was obtained and documented in the medical record. The patient was placed in the upright position. The right posterolateral chest wall was prepped and draped in the standard sterile fashion. A suitable percutaneous intercostal approach to the right pleural space was identified and the overlying skin was infiltrated with 1% lidocaine for local anesthesia. Large right pleural effusion was identified on ultrasound. Then under continuous sonographic guidance, a 5 [place] [employer]eh needle catheter was advanced into the pleural space. The catheter was advanced off the needle and connected to vacuum bottle with subsequent evacuation of 800 cc of serosanguinous fluid. The catheter was removed and a sterile, occlusive dressing was applied. Postprocedure sonographic image showed small residual effusion. Sample was sent to lab. After the completion of the procedure, the patient developed midline chest pain and was noted to be hypertensive with systolic blood pressure in the 60s to 70s and diastolic pressure in the 40s to 50s. Rapid response was called. The patient was taken for a Stat CT chest, abdomen, pelvis, which demonstrated no findings to account for the patient's hypotension. A small right hydropneumothorax was present. The patient was noted to have been started on an anti-hypertensive on the floor approximately 1-2 hours pre-procedurally. EKG was also obtained. Please refer to the rapid response note for further details. IMPRESSION: Ultrasound-guided diagnostic and therapeutic right thoracentesis with evacuation of 800 cc of serosanguinous fluid. Small right hydropneumothorax, which will be followed up on subsequent chest radiograph. Hypotension and chest pain post-procedurally, which was not felt to be related to the procedure. Rapid response was called with Dr. Clark present. Please refer to rapid response note for further details. Signed by: Dr. Harsh Mckeon MD on 02/08/2019 5:03 PM
--- NOTE | 2019-02-08 17:30 | Diagnostic Imaging Report ---
TECHNIQUE: CT of the chest, abdomen and pelvis WITH intravenous contrast. INDICATION: Hypotension post thoracentesis. COMPARISON: CT chest with contrast 02/05/2019. TECHNIQUE: Chest was scanned utilizing a multidetector helical scanner from the lung apex through the level of the pubic symphysis without administration of IV contrast. Coronal and sagittal reformations were obtained. Routine protocol was performed. RADIATION DOSE: Total DLP: 1103.5 mGy*cm Dose modulation, iterative reconstruction, and/or weight based adjustment of the mA/kV was utilized to reduce the radiation dose to as low as reasonably achievable. COMPLICATIONS: None FINDINGS: LINES AND TUBES: None LUNGS AND AIRWAYS/PLEURA: There has been bilateral thoracentesis with interval decrease in size of bilateral pleural effusions, now trace bilaterally. There is a small right hydropneumothorax, immediately post thoracentesis. There has been interval substantial reaeration of bilateral lungs with residual subsegmental atelectasis within the lower lobes, middle lobe, and lingula. Interval resolution of previously present groundglass opacities and interlobular septal thickening. Incidental azygos lobe. There is a 3 mm solid nodule within the lingula on series 2, image 48. Diffuse mild bronchial wall thickening. HEART AND MEDIASTINUM: The thyroid gland is normal. There is cardiomegaly. No pericardial effusion. Moderate coronary at this chronic calcifications. Diffuse atherosclerotic calcifications of the thoracic aorta and branch vessels. Again noted are mildly enlarged mediastinal and hilar lymph nodes, likely reactive. HEPATOBILIARY: No focal hepatic lesions. No biliary ductal dilatation. Cholelithiasis without CT evidence of cholecystitis. SPLEEN: No splenomegaly. PANCREAS: Fatty atrophy. No focal masses or ductal dilatation. ADRENALS: There is a 1.4 cm left adrenal nodule (-8 HU), consistent with adenoma. KIDNEYS/URETERS: No hydronephrosis or evidence of solid mass. Punctate 1 mm right lower pole nonobstructing stone on series 2, image 84. There is a 3 mm calcification within the right mid pole kidney, which may represent a renal stone or vascular calcification. PELVIC ORGANS/BLADDER: Prostatomegaly. PERITONEUM / RETROPERITONEUM: No free air or fluid. LYMPH NODES: No lymphadenopathy. VESSELS: There are scattered atherosclerotic calcifications in the aorta and branch vessels. GI TRACT: No distention or wall thickening. Small hiatal hernia. There is scattered colonic diverticulosis without CT evidence of diverticulitis. Normal appendix. BONES AND SOFT TISSUES: No acute osseous abnormality. Sclerotic focus within the left hemisacrum may represent a bone island. Moderate degenerative changes of the spine. Sclerotic endplate changes with likely Schmorl's nodes at the lumbar endplates. Small right lateral abdominal wall hernia which contains fat and small bowel loops without evidence of obstruction/incarceration. IMPRESSION: No acute findings within the chest, abdomen, or pelvis to account for the patient's hypotension. Interval bilateral thoracenteses with decreased bilateral pleural effusions, now trace. Trace right hydropneumothorax, immediately post thoracentesis. Interval partial reaeration within the lower lungs bilaterally. Above findings were discussed with Dr. Clark of the rapid response team in person at the time of the scan on 02/08/2019 at 1502. Cardiomegaly with extensive coronary atherosclerosis. Interval resolution of pulmonary interstitial edema. Non-obstructing right sided renal stones. Signed by: Dr. Harsh Mckeon MD on 02/08/2019 5:26 PM
--- NOTE | 2019-02-08 17:33 | Diagnostic Imaging Report ---
IR Consult dictation Please refer to the Ultrasound-guided right diagnostic and therapeutic thoracentesis dictation from 02/08/2019 for details. Signed by: Dr. Harsh Mckeon MD on 02/08/2019 5:29 PM
--- NOTE | 2019-02-08 17:34 | Diagnostic Imaging Report ---
EXAMINATION: CHEST SINGLE (PORTABLE) INDICATION: ^chest pain COMPARISON: Chest x-ray 02/07/2019. 02/05/2019. FINDINGS: AP view TUBES and LINES: None. LUNGS: Lungs are well inflated. There are bibasilar atelectasis. There is perihilar interstitial opacities, consistent with interstitial edema. PLEURA: Likely small bilateral pleural effusions. HEART AND MEDIASTINUM: Cardiac size is moderately enlarged. There are atherosclerotic calcifications within the aorta. BONES AND SOFT TISSUES: No acute osseous lesion. Soft tissues are unremarkable. UPPER ABDOMEN: No free air under the diaphragm. IMPRESSION: Moderate cardiomegaly with interstitial edema. Small bilateral pleural effusions. Signed by: Dr. Francis Hughes M.D. on 02/08/2019 5:31 PM
--- NOTE | 2019-02-08 18:33 | NUR ---
B/P 98/57, HR 70 O2 97%. Patient resting with eyes, no respiratory distress observed. call light at reach.
[2019-02-08] MEDS: THIAMINE HCL 100 MG TAB PO SCH (18:43)
--- NOTE | 2019-02-08 19:10 | NUR ---
BEDSIDE REPORT GIVEN TO ON COMING NURSE.
--- NOTE | 2019-02-08 20:00 | NUR ---
pt received. no ss of distress noted. no co at time. tele in place. 02 nc noted. pt awaiting icu transfer. call day within reach. report given to icu nurse at time.
--- NOTE | 2019-02-08 20:25 | NUR ---
pt transferred to 192 by icu nurse and medsurg nurse. no distress with transfer.
[2019-02-08] MEDS: PRAVASTATIN 20 MG TAB PO SCH (21:23)
[2019-02-09] VITALS (26 sets, daily range): BP systolic 83–127; BP diastolic 47–90
[2019-02-09] MEDS: IPRATROPIUM BROMIDE 0.02% 2.5 ML NEB NEB SCH ×4 (01:18→19:05)
[2019-02-09 05:13] LABS: BASOPHILS % 0.3 % (0.0-1.0); EOSINOPHILS # (AUTO) 0.1 (0.0-0.4); EOSINOPHILS % 0.6 % (0.0-6.0); HEMATOCRIT 41.1 % (38.2-49.6); HEMOGLOBIN 13.4 g/dL (14.0-18.0); MEAN CORPUSCULAR HEMOGLOBIN 29.6 pg (28-32); MEAN CORPUSCULAR HGB CONC 32.6 g/dL (31-35); MEAN CORPUSCULAR VOLUME 90.7 fL (81-99); MONOCYTES % 10.6 % (4.4-11.3); NEUTROPHILS # (AUTO) 7.5 (2.1-6.9); NEUTROPHILS % 78.1 % (38.7-80.0); PLATELET COUNT 274 x10e3/uL (140-360); RED BLOOD COUNT 4.53 x10e6/uL (4.3-5.7); RED CELL DISTRIBUTION WIDTH 13.2 % (11.7-14.4)
[2019-02-09 05:30] LABS: ANION GAP 12.2 mmol/L (8-16); CALCIUM 8.6 mg/dL (8.4-10.2); CREATININE, SERUM 1.56 mg/dL (0.72-1.25); POTASSIUM 5.2 mmol/L (3.5-5.1)
[2019-02-09 06:44] LABS: CREATINE KINASE MB 1.1 ng/mL (0-5.0)
[2019-02-09] MEDS: INSULIN LISPRO 100 UNIT/1 ML 3ML VIAL SQ SCH ×4 (07:30→21:00)
[2019-02-09] MEDS: THIAMINE HCL 100 MG TAB PO SCH (09:00)
[2019-02-09] MEDS: FUROSEMIDE INJ 10 MG/ML 4 ML VIAL IV SCH (09:00)
[2019-02-09] MEDS: LISINOPRIL 2.5 MG TAB PO SCH (09:00)
[2019-02-09] MEDS: PANTOPRAZOLE SOD 40 MG TABEC PO SCH (09:00)
[2019-02-09] MEDS: ASPIRIN 81 MG ENTERIC COATED PO SCH (09:00)
[2019-02-09] MEDS: AMIODARONE HCL 200 MG TAB PO SCH ×2 (09:00→17:30)
[2019-02-09] MEDS: GLIPIZIDE 5 MG TAB ER PO SCH (09:51)
--- NOTE | 2019-02-09 14:44 | Diagnostic Imaging Report ---
EXAM: CHEST SINGLE (PORTABLE) DATE: 02/09/2019 12:20 PM INDICATION: Pneumothorax COMPARISON: Chest x-ray, 02/08/2019 FINDINGS: Lines and tubes: None Stable moderate enlargement of the cardiac silhouette. Small bilateral pleural effusions with underlying basilar atelectasis, increased from previous exam. Central pulmonary vascular prominence noted. No pneumothorax is seen. Upper abdomen unremarkable. No acute bony abnormality. IMPRESSION: Cardiomegaly and central pulmonary vascular prominence. Small bilateral pleural effusions, slightly increased from previous exam. Signed by: Dr. Tom Martin M.D. on 02/09/2019 2:41 PM
--- NOTE | 2019-02-09 15:43 | NUR ---
CASE MANAGEMENT INITIAL ASSESSMENT [place] Consultant to bedside to discuss plan of care with patient/family. CM/SW role and care transitions discussed. Anticipated discharge plan discussed along with duration of care. CM/SW discussed patients right to make decisions in care. CM/SW work hours given. Patient lives: Admit/Transfer: ER Hospital/ER visits since last admit:0 POA/Emergency contact: DEEPALI INMAN [phone] Current/Previous Home Health: NONE PCP/Follow-up Care: DR PABLO DOBBS Current/Previous DME: [employer] Medications (referring to index hospitalization or the first time you were in the hospital) a. Were changes made in your medications when you were in the hospital on [date of index hospitalization]? Yes No Not sure Explain: Note: If no or not sure, please skip to question d b. Did you understand the changes? Yes No Explain: c. Were you able to obtain your new medications right away? Yes No n/a SNF only Explain: d. Were you able to take your medications like the doctor wanted you to? TAKING ORDERED BY PCP e. Did the hospital give you an accurate, easy to understand list of medications when you left? Scale of 1-10 how comfortable does patient feel with disease management in outpatient settin Other Services: NONE Employment Status: RETIRED Areas of Concerns: NONE Referral Needs: NONE Education Needs: NONE IMM/SCHNEIDER given and signed (if applicable): IMM ON ADMIT Goal for discharge:DC HOME WITH SOON MEDICALLY STABLE CM/SW left business card at the bedside with contact information. Name and number was also written on the patients whiteboard. Patient verbalized understanding of discussion. CM will follow-up with ongoing discharge and transition of care needs.
[2019-02-09] MEDS: FAMOTIDINE 20 MG/2 ML VIAL IV SCH (15:45)
--- NOTE | 2019-02-09 17:41 | NUR ---
Nutrition Screen Note RD Recommendation for Physician: -Continue ADA diet as ordered Plan of Care: RD following, monitoring for tolerance and adequacy Nutrition reason for involvement: Nutrition Risk Trigger MST Primary Diagnose(s): 1. Atrial fibrillation with rapid ventricular rate. 2. Bilateral pleural effusions, right greater than left. PMH: Asbestos exposure, possible COPD, diabetes, and hypertension. Ht: 70in Wt: 216.56lb BMI: 31.1kg/m2 IBW: 166lb RD Assessment: (02/09) Chart reviewed. Labs and meds reviewed. 83yo M, who was admitted for SOB. Visited pt in room who denied significant wt loss, denied decrease in appetite RECEP. Pt denied chewing/swallowing problems and nausea/vomiting. Pt has had good appetite with 75-100% meal intake since admission. Will continue to monitor and follow. Please consult as needed. Current Diet: ADA diet Malnutrition Evaluation (02/09) The patient does not meet criteria for a specified degree of malnutrition at this time. Will re-evaluate at follow-up as appropriate. Diet Education Needs Assessment: Diet education not indicated. Nutrition Care Level: low Signed: Amanda Tran, MS, RD, LD
[2019-02-09] MEDS: METOPROLOL TARTRATE 50 MG TAB PO SCH (20:01)
[2019-02-09] MEDS: TAMSULOSIN HCL 0.4 MG CAP PO SCH (21:44)
[2019-02-09] MEDS: PRAVASTATIN 20 MG TAB PO SCH (21:45)
[2019-02-10] VITALS (10 sets, daily range): BP systolic 95–113; BP diastolic 58–85
[2019-02-10] MEDS: MORPHINE SULFATE INJ 4 MG/ML INJ 1ML IV PRN ×2 (00:43→04:29)
[2019-02-10] MEDS: ONDANSETRON HCL INJ 2MG/ML 2ML 2 MG/ML VIAL IV PRN (00:43)
[2019-02-10] MEDS: IPRATROPIUM BROMIDE 0.02% 2.5 ML NEB NEB SCH ×4 (01:25→20:25)
[2019-02-10] MEDS: FAMOTIDINE 20 MG/2 ML VIAL IV SCH (02:54)
--- NOTE | 2019-02-10 04:38 | NUR ---
CALLED AND SPOKE TO DR CHACKO PATIENT IS OK TO TRANSFER TO [facility] WITH TELE
[2019-02-10 04:44] LABS: BASOPHILS % 0.4 % (0.0-1.0); EOSINOPHILS # (AUTO) 0.2 (0.0-0.4); EOSINOPHILS % 2.1 % (0.0-6.0); HEMATOCRIT 39.9 % (38.2-49.6); HEMOGLOBIN 13.1 g/dL (14.0-18.0); LYMPHOCYTES # (AUTO) 1.2 (1.0-3.2); LYMPHOCYTES % 12.5 % (18.0-39.1); MEAN CORPUSCULAR HEMOGLOBIN 29.6 pg (28-32); MEAN CORPUSCULAR HGB CONC 32.8 g/dL (31-35); MEAN CORPUSCULAR VOLUME 90.3 fL (81-99); MONOCYTES # (AUTO) 1.2 (0.2-0.8); MONOCYTES % 12.7 % (4.4-11.3); NEUTROPHILS # (AUTO) 6.8 (2.1-6.9); PLATELET COUNT 243 x10e3/uL (140-360); RED BLOOD COUNT 4.42 x10e6/uL (4.3-5.7); RED CELL DISTRIBUTION WIDTH 13.2 % (11.7-14.4)
--- NOTE | 2019-02-10 04:51 | NUR ---
SPOKE TO DR GONZALES PATIENT ONLY OK TO TRANSFER TO IMCU ONLY.
--- NOTE | 2019-02-10 05:00 | NUR ---
LATE ENTRY AND UNABLE TO CHART RE-ASSESSMENT OF PAIN LEVEL AFTER ADMINISTRATION OF PRN PAIN MEDICATION. PAIN LEVEL A 0
[2019-02-10 05:05] LABS: ALBUMIN 2.8 g/dL (3.5-5.0); ALBUMIN/GLOBULIN RATIO 0.8 (0.8-2.0); ANION GAP 11.2 mmol/L (8-16); CALCIUM 8.6 mg/dL (8.4-10.2); CREATININE, SERUM 1.33 mg/dL (0.72-1.25); POTASSIUM 5.2 mmol/L (3.5-5.1)
--- NOTE | 2019-02-10 06:09 | Diagnostic Imaging Report ---
EXAM: CHEST SINGLE (PORTABLE) DATE: 02/10/2019 5:30 AM INDICATION: Atrial fibrillation. Follow-up pneumothorax. COMPARISON: Chest x-ray, 02/09/2019 FINDINGS: Lines and tubes: None Stable moderate enlargement of the cardiac silhouette. Small bilateral pleural effusions with underlying basilar atelectasis, increased from previous exam. Central pulmonary vascular prominence noted. No pneumothorax is observed. Upper abdomen unremarkable. No acute bony abnormality. IMPRESSION: Cardiomegaly and central pulmonary vascular prominence. Small bilateral pleural effusions, unchanged. Signed by: Dr. Yossi Robles M.D. on 02/10/2019 6:06 AM
--- NOTE | 2019-02-10 06:10 | NUR ---
LAST SET OF VITAL SIGNS CHARTED AT 0610. PATIENT WAS TRANSFERRED TO [facility] VIA WHEELCHAIR WITH MONITOR IN PLACE. PLACED PATIENT IN BED AND CONNECTED TO IMCU CARDIAC MONITORING SYSTEM. SEBASTIAN CALLES AT BEDSIDE ALONG WITH BEDSIDE REPORT GIVEN
--- NOTE | 2019-02-10 06:31 | NUR ---
Bed side report received from STEVAN Pascual. Patient transferred from ICU by wheelchair. Patient alert/oriented x3. Denied pain and no SOB. No respiratory distress noted. SPo2 maintained 96% with RA, V/S WNL. Will continue to monitor.
[2019-02-10] MEDS: INSULIN LISPRO 100 UNIT/1 ML 3ML VIAL SQ SCH ×4 (06:56→21:00)
--- NOTE | 2019-02-10 07:01 | NUR ---
Report given to oncoming nurse,walking round done.
[2019-02-10] MEDS: ASPIRIN 81 MG ENTERIC COATED PO SCH (08:17)
[2019-02-10] MEDS: AMIODARONE HCL 200 MG TAB PO SCH ×2 (08:17→16:48)
[2019-02-10] MEDS: THIAMINE HCL 100 MG TAB PO SCH (08:17)
[2019-02-10] MEDS: PANTOPRAZOLE SOD 40 MG TABEC PO SCH (08:17)
[2019-02-10] MEDS: GLIPIZIDE 5 MG TAB ER PO SCH (08:17)
[2019-02-10] MEDS: METOPROLOL TARTRATE 50 MG TAB PO SCH ×2 (08:18→16:48)
--- NOTE | 2019-02-10 08:30 | NUR ---
pt resting in bed, ate breakfast, amb to bathroom unassisted. vs stable. will continue to monitor.
--- NOTE | 2019-02-10 10:27 | NUR ---
dr hunter on unit, aware of labs.
[2019-02-10] MEDS: PRAVASTATIN 20 MG TAB PO SCH (21:27)
[2019-02-10] MEDS: TAMSULOSIN HCL 0.4 MG CAP PO SCH (21:27)
[2019-02-11] VITALS (9 sets, daily range): BP systolic 106–122; BP diastolic 51–92
[2019-02-11] MEDS: ENOXAPARIN SODIUM INJ 100 MG/ML SYR SC SCH (01:58)
[2019-02-11] MEDS: IPRATROPIUM BROMIDE 0.02% 2.5 ML NEB NEB SCH ×5 (03:35→23:17)
--- NOTE | 2019-02-11 07:14 | NUR ---
Report given to oncoming nurse,walking round done.
[2019-02-11] MEDS: INSULIN LISPRO 100 UNIT/1 ML 3ML VIAL SQ SCH ×4 (07:30→20:55)
[2019-02-11] MEDS: THIAMINE HCL 100 MG TAB PO SCH (08:33)
[2019-02-11] MEDS: ASPIRIN 81 MG ENTERIC COATED PO SCH (08:33)
[2019-02-11] MEDS: AMIODARONE HCL 200 MG TAB PO SCH (08:33)
[2019-02-11] MEDS: METOPROLOL TARTRATE 50 MG TAB PO SCH ×2 (08:33→16:38)
[2019-02-11] MEDS: FUROSEMIDE 40 MG TAB PO SCH (08:33)
[2019-02-11] MEDS: GLIPIZIDE 5 MG TAB ER PO SCH (08:33)
[2019-02-11] MEDS: PANTOPRAZOLE SOD 40 MG TABEC PO SCH (08:33)
--- NOTE | 2019-02-11 12:38 | NUR ---
EDUCATED ABOUT IMM, SIGNED, FILED IN CHART, WITH COPY LEFT WITH FAMILY AT BEDSIDE.
--- NOTE | 2019-02-11 13:48 | NUR ---
CM MET PT AND IN ROOM TO DISCUSS DC NEEDS NO DME OR HOME HEALTH NEEDED OR WANTED HOME 02 EVAL IN PROGRESS GAVE PT MY CARD TO CALL FOR QUESTIONS/CONCERNS
[2019-02-11] MEDS: MORPHINE SULFATE INJ 4 MG/ML INJ 1ML IV PRN (13:57)
[2019-02-11] MEDS ORDERED: ENOXAPARIN SODIUM INJ 100 MG/ML SYR SC SCH (14:00)
[2019-02-11] MEDS: APIXABAN 5 MG TABLET PO SCH (16:38)
[2019-02-11] MEDS: PRAVASTATIN 20 MG TAB PO SCH (20:55)
[2019-02-11] MEDS: TAMSULOSIN HCL 0.4 MG CAP PO SCH (20:55)
[2019-02-12 04:23] VITALS: BP 105/61
[2019-02-12 05:32] LABS: BASOPHILS # (AUTO) 0.1 (0.0-0.1); BASOPHILS % 0.7 % (0.0-1.0); EOSINOPHILS # (AUTO) 0.2 (0.0-0.4); EOSINOPHILS % 2.9 % (0.0-6.0); HEMATOCRIT 41.3 % (38.2-49.6); HEMOGLOBIN 13.6 g/dL (14.0-18.0); LYMPHOCYTES # (AUTO) 1.1 (1.0-3.2); MEAN CORPUSCULAR HEMOGLOBIN 29.2 pg (28-32); MEAN CORPUSCULAR HGB CONC 32.9 g/dL (31-35); MEAN CORPUSCULAR VOLUME 88.8 fL (81-99); MONOCYTES # (AUTO) 0.9 (0.2-0.8); MONOCYTES % 12.4 % (4.4-11.3); NEUTROPHILS # (AUTO) 5.1 (2.1-6.9); NEUTROPHILS % 68.7 % (38.7-80.0); PLATELET COUNT 266 x10e3/uL (140-360); RED BLOOD COUNT 4.65 x10e6/uL (4.3-5.7); RED CELL DISTRIBUTION WIDTH 13.2 % (11.7-14.4)
[2019-02-12 05:57] LABS: ALANINE AMINOTRANSFERASE 14 IU/L (0-55); ALBUMIN 2.9 g/dL (3.5-5.0); ALBUMIN/GLOBULIN RATIO 0.8 (0.8-2.0); ALKALINE PHOSPHATASE 62 IU/L (40-150); ANION GAP 12.2 mmol/L (8-16); BLOOD UREA NITROGEN 20 mg/dL (7-26); BUN/CREATININE RATIO 19 (6-25); CALCIUM 8.8 mg/dL (8.4-10.2); CARBON DIOXIDE 26 mmol/L (22-29); CHLORIDE 104 mmol/L (98-107); CREATININE, SERUM 1.08 mg/dL (0.72-1.25); EST GLOMERULAR FILTRATION RATE > 60 ML/MIN (60-); POTASSIUM 4.2 mmol/L (3.5-5.1); SODIUM 138 mmol/L (136-145)
[2019-02-12 06:02] LABS: GLUCOSE 53 mg/dL (74-118)
--- NOTE | 2019-02-12 07:10 | NUR ---
Report given to AM nurse,walking round done.
[2019-02-12] MEDS: INSULIN LISPRO 100 UNIT/1 ML 3ML VIAL SQ SCH (07:11)
[2019-02-12] MEDS ORDERED: FUROSEMIDE40 MG PO (08:14)
[2019-02-12] MEDS ORDERED: Apixaban PO (08:14)
[2019-02-12] MEDS ORDERED: COZAAR25 MG PO (08:14)
[2019-02-12] MEDS ORDERED: AMIODARONE HCL200 MG PO (08:14)
[2019-02-12] MEDS ORDERED: NITROSTAT0.4 MG SL (08:14)
[2019-02-12] MEDS ORDERED: METOPROLOL TART50 MG PO (08:14)
[2019-02-12] MEDS: GLIPIZIDE 5 MG TAB ER PO SCH (08:30)
[2019-02-12] MEDS ORDERED: LOSARTAN POTASSIUM 25 MG TAB PO SCH (09:00)
[2019-02-12] MEDS ORDERED: AMIODARONE HCL 200 MG TAB PO SCH (09:00)
[2019-02-12] MEDS: ASPIRIN 81 MG ENTERIC COATED PO SCH (09:12)
[2019-02-12] MEDS: PANTOPRAZOLE SOD 40 MG TABEC PO SCH (09:13)
[2019-02-12] MEDS: FUROSEMIDE 40 MG TAB PO SCH (09:13)
[2019-02-12] MEDS: APIXABAN 5 MG TABLET PO SCH (09:13)
[2019-02-12] MEDS: METOPROLOL TARTRATE 50 MG TAB PO SCH (09:13)
[2019-02-12] MEDS: THIAMINE HCL 100 MG TAB PO SCH (09:13)
[2019-02-12] MEDS ORDERED: AMIODARONE HCL200 MG (09:51)
--- NOTE | 2019-02-13 02:18 | Discharge Summary ---
Patient of Dr. Escoto. HOSPITAL COURSE: Keyon 83-year-old gentleman admitted with shortness of breath, found to be in atrial fibrillation with rapid response, history of , history of diabetes, history of BPH, was found to be in congestive heart failure with ejection fraction of 20%. Deemed too unstable for a cardiac catheterization and possible angioplasty at this time. He was treated with diuretics, thoracentesis. He did have a vasovagal reaction to thoracentesis and was transferred to additional fluid replacement. 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 Continue amiodarone 200 mg a day, Eliquis 5 mg b.i.d., aspirin 81, Lasix 40, glipizide 10 mg b.i.d., losartan [address] lisinopril, metoprolol 50 b.i.d., nitroglycerin p.r.n., omeprazole 20 a day, Pravachol 20 a day, Flomax 0.4 mg a day. He will also follow up with Dr. Bettencourt in approximately 2 weeks. MD OSIEL David/HAYDEEL /[id number]
== END 2019-02-12 10:00 | disposition home or self-care (01) | DRG 292 ==
LOC: ER 11:33 → ERHOLD 15:46 → MED/SURG 17:01 → ICU 02-08 20:25 → IMCU 02-10 06:35
PROVIDERS: ADMIT Internal Medicine; ATTEND Internal Medicine
PROC: 0W993ZX Drainage of Right Pleural Cavity, Percutaneous Approach, Diagnostic (ICD-10-PCS; 2019-02-05)
PROC: 0W9B30Z Drainage of Left Pleural Cavity with Drainage Device, Percutaneous Approach (ICD-10-PCS; principal; 2019-02-07)
DX: I11.0 Hypertensive heart disease with heart failure (principal); J91.8 Pleural effusion in other conditions classified elsewhere; I48.91 Unspecified atrial fibrillation; I50.23 Acute on chronic systolic (congestive) heart failure; J44.9 Chronic obstructive pulmonary disease, unspecified; J61 Pneumoconiosis due to asbestos and other mineral fibers; F10.20 Alcohol dependence, uncomplicated; E11.9 Type 2 diabetes mellitus without complications; I95.9 Hypotension, unspecified; R35.0 Frequency of micturition; N40.1 Benign prostatic hyperplasia with lower urinary tract symptoms; R39.15 Urgency of urination; Z87.891 Personal history of nicotine dependence
CPT/HCPCS: 32555; 36415; 71045; 71250; 71260; 74176; 74470; 80048; 80053; 80061; 81001; 82550; 82553; 82948; 83615; 83735; 83880; 84157; 84443; 84484; 85025; 85379; 85610; 85730; 87070; 87086; 87205; 88112; 88305; 89051; 93005; 93306; 94640; 99284; J1650; J1885; J1940; J2270; J2405; J3411; J7040; J7799

== ENCOUNTER → 2019-03-11 | Outpatient (CLI) | payer BC, MEDICARE ==
[~2019-03-11] MED LIST changes: +AMIODARONE HCL200 MG; +AMIODARONE HCL200 MG PO; +ASPIR 8181 MG PO; +Apixaban PO; +COZAAR25 MG PO; +FUROSEMIDE40 MG PO; +GLIPIZIDE ER5 MG PO; +LISINOPRIL2.5 MG PO; +METOPROLOL TART50 MG PO; +NITROSTAT0.4 MG SL; +OMEPRAZOLE40 MG PO; +PRAVASTATIN SOD20 MG PO; -SINCALIDE 3 MCG/VIAL INJ ONE; +TAMSULOSIN HCL0.4 MG PO
[2019-03-11 09:46] LABS: BASOPHILS % 0.4 % (0.0-1.0); EOSINOPHILS # (AUTO) 0.3 (0.0-0.4); EOSINOPHILS % 4.4 % (0.0-6.0); HEMATOCRIT 39.5 % (38.2-49.6); LYMPHOCYTES % 15.2 % (18.0-39.1); MEAN CORPUSCULAR HEMOGLOBIN 29.1 pg (28-32); MEAN CORPUSCULAR HGB CONC 32.9 g/dL (31-35); MEAN CORPUSCULAR VOLUME 88.6 fL (81-99); MONOCYTES # (AUTO) 0.9 (0.2-0.8); MONOCYTES % 13.5 % (4.4-11.3); NEUTROPHILS # (AUTO) 4.5 (2.1-6.9); NEUTROPHILS % 66.1 % (38.7-80.0); PLATELET COUNT 244 x10e3/uL (140-360); RED BLOOD COUNT 4.46 x10e6/uL (4.3-5.7); RED CELL DISTRIBUTION WIDTH 13.2 % (11.7-14.4)
[2019-03-11 10:04] LABS: CALCIUM 9.2 mg/dL (8.4-10.2); CREATININE, SERUM 1.17 mg/dL (0.72-1.25)
== END ==
LOC: CATH LAB 09:05
PROVIDERS: ATTEND Internal Medicine Pulmonary Disease
DX: I50.9 Heart failure, unspecified (principal)
CPT/HCPCS: 36415; 80048; 83036; 85025

== ENCOUNTER → 2019-06-14 | Outpatient (CLI) | payer MEDICARE, BC ==
--- NOTE | 2019-06-14 09:00 | Diagnostic Imaging Report ---
EXAMINATION: CHEST 2 VIEWS INDICATION: Shortness of breath COMPARISON: Multiple prior chest radiograph, most recently of 02/10/2019 FINDINGS: TUBES and LINES: None. LUNGS: The lungs are moderately inflated. Patchy opacities at the right lung base. More focal pleural-based opacity at the lateral right lower lung zone. No pulmonary edema. PLEURA: Bilateral small pleural effusions right greater than left. No pneumothorax. HEART AND MEDIASTINUM: Stable cardiomegaly. Atherosclerotic calcifications of the thoracic aorta. BONES AND SOFT TISSUES: No acute fracture or dislocation. Degenerative changes of the visualized spine. UPPER ABDOMEN: No free air under the diaphragm. IMPRESSION: Patchy opacities at the right lung base, most likely subsegmental atelectasis. A more focal pleural-based opacity at the lateral right lower lung zone may represent atelectasis however a pleural-based mass cannot be excluded. Stable cardiomegaly. Bilateral right greater than left small pleural effusions. Signed by: Sandie Negro MD on 06/14/2019 8:57 AM
[2019-06-14 09:14] LABS: ANION GAP 15.1 mmol/L (8-16); CALCIUM 9.6 mg/dL (8.4-10.2); CREATININE, SERUM 1.21 mg/dL (0.72-1.25); POTASSIUM 5.1 mmol/L (3.5-5.1)
== END ==
LOC: RAD 08:12
PROVIDERS: ATTEND Internal Medicine Pulmonary Disease
DX: E11.9 Type 2 diabetes mellitus without complications (principal); I50.9 Heart failure, unspecified
CPT/HCPCS: 36415; 71046; 80048; 83036

== ENCOUNTER → 2020-01-25 | Outpatient (CLI) | payer MEDICARE, BC ==
[2020-01-25 14:55] LABS: BASOPHILS # (AUTO) 0.1 (0.0-0.1); BASOPHILS % 0.7 % (0.0-1.0); EOSINOPHILS # (AUTO) 0.3 (0.0-0.4); EOSINOPHILS % 3.7 % (0.0-6.0); HEMATOCRIT 41.9 % (38.2-49.6); HEMOGLOBIN 13.6 g/dL (14.0-18.0); LYMPHOCYTES # (AUTO) 1.5 (1.0-3.2); LYMPHOCYTES % 20.6 % (18.0-39.1); MEAN CORPUSCULAR HEMOGLOBIN 29.1 pg (28-32); MEAN CORPUSCULAR HGB CONC 32.5 g/dL (31-35); MEAN CORPUSCULAR VOLUME 89.5 fL (81-99); MONOCYTES # (AUTO) 0.6 (0.2-0.8); MONOCYTES % 7.9 % (4.4-11.3); NEUTROPHILS # (AUTO) 4.9 (2.1-6.9); NEUTROPHILS % 66.7 % (38.7-80.0); PLATELET COUNT 203 x10e3/uL (140-360); RED BLOOD COUNT 4.68 x10e6/uL (4.3-5.7); RED CELL DISTRIBUTION WIDTH 13.3 % (11.7-14.4)
[2020-01-25 15:26] LABS: ANION GAP 13.1 mmol/L (8-16); CHOL/HDL RATIO 3.3 (3.9-4.7); CREATININE, SERUM 1.37 mg/dL (0.72-1.25); POTASSIUM 4.1 mmol/L (3.5-5.1)
[2020-01-25 15:45] LABS: THYROID STIMULATING HORMONE 2.683 uIU/mL (0.350-4.940)
--- NOTE | 2020-01-25 15:56 | Diagnostic Imaging Report ---
CT of the abdomen and pelvis, without contrast. History: Abdominal hernia. Comparison: 02/08/2019. Technique: Multidetector CT scanning of the abdomen and pelvis was performed from the level of the lung bases to the inferior pubic rami after oral administration of contrast only. Coronal and sagittal multiplanar reformations were obtained. RADIATION DOSE: Total DLP: 588.63 mGy*cm Dose modulation, iterative reconstruction, and/or weight based adjustment of the mA/kV was utilized to reduce the radiation dose to as low as reasonably achievable. FINDINGS: There are trace bilateral pleural effusions and associated bibasilar atelectasis present. There is partially visualized cardiomegaly and pacing leads noted. The liver is normal in size and attenuation on this noncontrast enhanced examination. Small, dependently layering stones are noted within the gallbladder. There is no evidence for gallbladder wall thickening or pericholecystic fluid. The stomach, spleen, pancreas, and right adrenal glands demonstrate an unremarkable noncontrast appearance. There is a stable 1.4 cm left adrenal nodule which again demonstrates attenuation values compatible with a benign adenoma. The kidneys are normal in size and location. Air is a 4 mm nonobstructing stone identified within the interpolar region of the right kidney. An additional punctate nonobstructing stone is identified within the inferior pole the right kidney. A stable exophytic cyst is identified arising off the superior pole of the left kidney. There is no evidence for hydronephrosis. The ureters are normal course and caliber. The urinary bladder demonstrates no significant abnormalities. The prostate appears prominent. The abdominal aorta is normal course and caliber with atherosclerotic calcifications within its course and branch vessels. The IVC is normal in caliber. Again identified is a right lateral abdominal wall hernia which contains herniated mesenteric fat and loops of small bowel. The fascial defect is approximately 3.0 cm in length. There is no evidence for bowel obstruction. The visualized loops small large bowel demonstrate no evidence of obstruction or inflammation. Scattered diverticula are noted within the colon without evidence for acute diverticulitis. There is no ascites or intraperitoneal free air. No abnormally enlarged lymph nodes are identified within the abdomen or pelvis. Prominent degenerative changes of the thoracolumbar spine. There is no evidence for acute fracture. The extraperitoneal soft tissues are unremarkable. IMPRESSION: Small bowel containing right lateral abdominal wall hernia as detailed above. No evidence for obstruction or strangulation. Trace bilateral pleural effusions and bibasilar atelectasis. Cholelithiasis. Nonobstructive right-sided nephrolithiasis. Additional stable findings as above. Signed by: Dr. Emiliano Roman MD on 01/25/2020 3:53 PM
== END ==
LOC: CT 13:32
PROVIDERS: ATTEND Internal Medicine Pulmonary Disease
DX: K46.9 Unspecified abdominal hernia without obstruction or gangrene (principal); I48.21 Permanent atrial fibrillation
CPT/HCPCS: 36415; 74176; 80048; 80061; 82044; 83036; 84443; 85025

== ENCOUNTER 2020-06-20 08:04 | Inpatient (IN) | payer MEDICARE, BC, OTHER ==
[~2020-06-20] VITALS: Ht 177.8 cm; Wt 90.7 kg
--- NOTE | 2020-06-20 08:32 | Emergency Department Note ---
History of Present Illnes History of Present Illness Chief Complaint: COVID PUI History of Present Illness This is a 86 year old male here with 2 day h/o dyspnea, cough, no sick contacts. 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 SERVICES: O2 Onset (how long ago): day(s) (2) Location: home Quality: dyspnea, moderate, per EMS 85% RA on arrival Radiation: Reports non-radiation Severity: severe Onset quality: gradual Duration (how long): day(s) Timing of current episode: constant Progression: worsening Chronicity: new Relieving factors: none Exacerbating factors: movement Associated symptoms: Reports malaise, Reports shortness of breath, Reports weakness; Denies chest pain, Denies diaphoresis, Denies fever/chills, Denies nausea/vomiting Treatments prior to arrival: none Past Medical/Family History Physician Review I have reviewed the patient's past medical and family history. Any updates have been documented here. Past Medical History Recent Fever: No Clinical Suspicion of Infectio: Yes New/Unexplained Change in Ment: No Past Medical History: Hypertension, Diabetes, CHF, A-Fib, GERD, Hyperlipedemia Other Medical History: BPH Past Surgical History: None Other Surgery: ROTATOR CUFF SURGERY AICD placement with demand pacer Social History Physically hurt or threatened: No Other Last Tetanus: OOD Review of Systems Review of Systems Constitutional: Reports no symptoms, Reports as per HPI EENTM: Reports no symptoms Cardiovascular: Reports no symptoms, Reports as per HPI Respiratory: Reports no symptoms, Reports as per HPI Gastrointestinal: Reports no symptoms Genitourinary: Reports no symptoms Musculoskeletal: Reports no symptoms Integumentary: Reports no symptoms Neurological: Reports no symptoms Psychological: Reports no symptoms Endocrine: Reports no symptoms Hematological/Lymphatic: Reports no symptoms Physical Exam Related Data Allergies: Coded Allergies: No Known Allergies (Unverified , 02/05/19) Triage Vital Signs Vital Signs Date Time Temp Pulse Resp B/P (MAP) Pulse Ox O2 Delivery O2 Flow Rate FiO2 06/20/20 08:11 98.0 96 24 187/103 97 Nasal Cannula 2.0 Vital signs reviewed: Yes Physical Exam CONSTITUTIONAL Constitutional: Present well-developed, Present well-nourished HENT HENT: Present normocephalic, Present atraumatic, Present oropharynx clear/moist, Present nose normal HENT L/R: Present left ext ear normal, Present right ext ear normal EYES Eyes: Reports PERRL, Reports conjunctivae normal NECK Neck: Present ROM normal PULMONARY Pulmonary: Present other (moderate increase WOB, rales bilateral bases) CARDIOVASCULAR Cardiovascular: Present regular rhythm, Present heart sounds normal, Present capillary refill normal, Present normal rate GASTROINTESTINAL Abdominal: Present soft, Present nontender, Present bowel sounds normal GENITOURINARY Genitourinary: Present exam deferred SKIN Skin: Present warm, Present dry MUSCULOSKELETAL Musculoskeletal: Present ROM normal NEUROLOGICAL Neurological: Present alert, Present oriented x 3, Present no gross motor or sensory deficits PSYCHOLOGICAL Psychological: Present mood/affect normal, Present judgement normal Procedures 12 Lead ECG Interpretation ECG Interpretation : ECG: ECG 1 Fire Extinguisher Tester: Interpreted by ED physician Rhythm: sinus rhythm Additional Comments normal axis, paced on demand, no ST changes, no STEMI Assessment & Plan Medical Decision Making MDM Pt is an 86y/o M here with 2 days of worsening cough and dyspnea. CHF vs infectious etiology. Pt will need to be admitted to hypoxia. Reassessment Reassessment time: 09:40 Reassessment Pt with no leukocytosis, concern for edema on CXR, cannot r/o COVID, will swab and admit. Given h/o low EF, will treat as pulm edema, CHF and admit. Spoke to Sebastian, will admit, agrees with POC. Assessment & Plan Final Impression: (1) Hypoxia (2) Pulmonary edema Last Vital Signs Date Time Temp Pulse Resp B/P (MAP) Pulse Ox O2 Delivery O2 Flow Rate FiO2 06/20/20 08:11 98.0 96 24 187/103 97 Nasal Cannula 2.0 Home Meds Active Scripts Nitroglycerin (NITROSTAT) 0.4 Mg Tab.subl, 0.4 MG SL Q5M PRN for CHEST PAIN for 14 Days, #30 Prov:PABLO DOBBS MD 02/12/19 Metoprolol Tartrate (METOPROLOL TARTRATE) 50 Mg Tablet, 50 MG PO BID for 30 Days, #30 Prov:PABLO DOBBS MD 02/12/19 Losartan Potassium (COZAAR) 25 Mg Tablet, 25 MG PO DAILY for 28 Days, #30 Prov:PABLO DOBBS MD 02/12/19 Furosemide (FUROSEMIDE) 40 Mg Tablet, 40 MG PO DAILY for 30 Days, #30 TAB Prov:PABLO DOBBS MD 02/12/19 [Apixaban] 5 MG TABLET No Conflict Check, 5 MG PO BID for 30 Days, #60 Prov:PABLO DOBBS MD 02/12/19 Amiodarone Hcl (AMIODARONE HCL) 200 Mg Tablet, 200 MG PO DAILY for 30 Days, #30 TAB Prov:PABLO DOBBS MD 02/12/19 Reported Medications Amiodarone Hcl (AMIODARONE HCL) 200 Mg Tablet 02/12/19 Aspirin (ASPIR 81) 81 Mg Tablet.dr, 81 MG PO DAILY 02/05/19 Lisinopril (LISINOPRIL) 2.5 Mg Tablet, 5 MG PO DAILY, #30 TAB 02/05/19 Tamsulosin Hcl (TAMSULOSIN HCL) 0.4 Mg Cap.er.24h, 0.4 MG PO HS 02/05/19 Pravastatin Sodium (PRAVASTATIN SODIUM) 20 Mg Tablet, 20 MG PO HS 02/05/19 Omeprazole (OMEPRAZOLE) 40 Mg Capsule.dr, 20 MG PO DAILY 02/05/19 Glipizide (GLIPIZIDE ER) 5 Mg Tab.er.24, 10 MG PO DAILY 02/05/19 MIRIAN BOWEN MD Jun 20, 2020 08:32
[2020-06-20 08:40] LABS: BASOPHILS # (AUTO) 0.1 (0.0-0.1); BASOPHILS % 0.6 % (0.0-1.0); EOSINOPHILS # (AUTO) 0.2 (0.0-0.4); HEMATOCRIT 39.9 % (38.2-49.6); HEMOGLOBIN 12.5 g/dL (14.0-18.0); LYMPHOCYTES # (AUTO) 1.4 (1.0-3.2); LYMPHOCYTES % 16.6 % (18.0-39.1); MEAN CORPUSCULAR HEMOGLOBIN 28.6 pg (28-32); MEAN CORPUSCULAR HGB CONC 31.3 g/dL (31-35); MEAN CORPUSCULAR VOLUME 91.3 fL (81-99); MONOCYTES # (AUTO) 0.8 (0.2-0.8); MONOCYTES % 9.8 % (4.4-11.3); NEUTROPHILS % 70.8 % (38.7-80.0); PLATELET COUNT 205 x10e3/uL (140-360); RED BLOOD COUNT 4.37 x10e6/uL (4.3-5.7); RED CELL DISTRIBUTION WIDTH 13.4 % (11.7-14.4)
[2020-06-20 08:58] LABS: INR 1.26; PROTHROMBIN TIME 16.5 seconds (11.9-14.5)
[2020-06-20 09:07] LABS: ALANINE AMINOTRANSFERASE 7 IU/L (0-55); ALBUMIN 3.4 g/dL (3.5-5.0); ALKALINE PHOSPHATASE 59 IU/L (40-150); ANION GAP 13.6 mmol/L (8-16); BLOOD UREA NITROGEN 8 mg/dL (7-26); BUN/CREATININE RATIO 9 (6-25); CALCIUM 9.1 mg/dL (8.4-10.2); CARBON DIOXIDE 25 mmol/L (22-29); CHLORIDE 107 mmol/L (98-107); CREATINE KINASE 30 IU/L (30-200); CREATININE, SERUM 0.88 mg/dL (0.72-1.25); EST GLOMERULAR FILTRATION RATE > 60 ML/MIN (60-); GLUCOSE 100 mg/dL (74-118); POTASSIUM 3.6 mmol/L (3.5-5.1); SODIUM 142 mmol/L (136-145)
--- NOTE | 2020-06-20 09:24 | Diagnostic Imaging Report ---
EXAMINATION: CHEST SINGLE (PORTABLE) INDICATION: Shortness of breath COMPARISON: CT abdomen and pelvis of 01/25/2020 FINDINGS: LINES/TUBES:Left chest AICD. EKG leads overlie the chest. LUNGS:The lungs are moderately inflated. Patchy bibasilar airspace opacities. There is perihilar fullness and indistinctness of the pulmonary vasculature. PLEURA:Small right circumferential pleural effusion. No pneumothorax. MEDIASTINUM:Cardiomediastinal silhouette is stably enlarged. BONES/SOFT TISSUES:No acute osseous injury. ABDOMEN:No free air under the diaphragm. IMPRESSION: Cardiomegaly, pulmonary interstitial edema, and small right pleural effusion. Patchy bibasilar opacities, most likely subsegmental atelectasis. Pneumonitis should be excluded clinically. Signed by: Sandie Negro MD on 06/20/2020 9:21 AM
[2020-06-20] MEDS ORDERED: NITROGLYCERIN 2% OINT 1 GM PKT TOP ONE (09:30)
[2020-06-20] MEDS ORDERED: FUROSEMIDE INJ 10 MG/ML 4 ML VIAL IV ONE (09:30)
[2020-06-20] MEDS ORDERED: FLOMAX0.4 MG PO (11:43)
[2020-06-20] MEDS ORDERED: DIGOXIN125 MCG PO (11:43)
[2020-06-20] MEDS ORDERED: ELIQUIS5 M1 PO (11:43)
[2020-06-20] MEDS ORDERED: PRAVACHOL40 MG PO (11:43)
[2020-06-20] MEDS ORDERED: GLIPIZIDE ER5 MG (11:43)
[2020-06-20] MEDS ORDERED: METOPROLOL TAR100 MG PO (11:43)
[2020-06-20] MEDS ORDERED: FINASTERIDE5 MG PO (11:43)
[2020-06-20] MEDS ORDERED: ENTRESTO 24 MG1 EACH PO (11:43)
[2020-06-20] MEDS ORDERED: FUROSEMIDE40 MG PO (11:43)
[2020-06-20] MEDS ORDERED: OMEPRAZOLE20 MG (11:43)
[2020-06-20 11:50] VITALS: BP 148/97
[2020-06-20 12:35] VITALS: BP 148/97
--- NOTE | 2020-06-20 12:58 | NUR ---
Received report from STEVAN Zamarripa at 1045. Patient arrived to unit at 1135. Patient assessment was done. Patient in bed, call light within reach, bed in lowest position, side rails up x2. Patient was put on 2L NC at 100% O2 sats. Patient was oriented to room, procedures, and plan of care. Patient home medications were reconciled. CUT OFF SAW TENDER METAL Bridger Venegas was alerted of patient's arrival. No new medications or orders were given. Will continue to monitor.
[2020-06-20] MEDS ORDERED: POLYETHYLENE GLYCOL 3350 17 GM PACK PO PRN (13:00)
[2020-06-20] MEDS ORDERED: ONDANSETRON HCL INJ 2MG/ML 2ML 2 MG/ML VIAL IV PRN (13:00)
[2020-06-20] MEDS ORDERED: TEMAZEPAM 7.5 MG CAP PO PRN (13:00)
[2020-06-20] MEDS ORDERED: HYDRALAZINE HCL 20 MG/ML VIAL IV PRN (13:00)
[2020-06-20] MEDS ORDERED: ACETAMINOPHEN 325 MG TAB PO PRN (13:00)
[2020-06-20] MEDS: ASCORBIC ACID 500 MG TAB PO SCH (16:25)
[2020-06-20] MEDS: DOCUSATE SODIUM 100 MG CAP PO SCH (16:25)
[2020-06-20] MEDS: ZINC SULFATE 220 MG CAP PO SCH (16:25)
[2020-06-20] MEDS ORDERED: FAMOTIDINE 20 MG/2 ML VIAL IV SCH (17:00)
[2020-06-20] MEDS ORDERED: APIXABAN 5 MG TABLET PO SCH (17:30)
[2020-06-20 17:31] VITALS: BP 147/77
[2020-06-20] MEDS: VALSARTAN/SACUBITRIL 24MG/26MG 1 EA TAB PO SCH (17:43)
[2020-06-20] MEDS: METOPROLOL TARTRATE 50 MG TAB PO SCH (17:44)
[2020-06-20] MEDS: APIXAB 2.5 MG TABLET PO SCH (17:55)
[2020-06-20] MEDS: FUROSEMIDE INJ 10 MG/ML 2 ML VIAL IV SCH (17:55)
--- NOTE | 2020-06-20 19:25 | NUR ---
Patient received lying in bed. AAO x 3. Patient had no complaints of pain. Respirations even and non labored on 2L NC. Safety measures implemented. Patient instructed to call for assistance when needed. Call light within reach.
[2020-06-20 20:00] VITALS: BP 134/67
[2020-06-20] MEDS ORDERED: SIMVASTATIN 40 MG TAB PO SCH (21:00)
[2020-06-20] MEDS ORDERED: SIMVASTATIN 20 MG TAB PO SCH (21:00)
[2020-06-20] MEDS ORDERED: TEMAZEPAM 15 MG CAP PO PRN (21:00)
--- NOTE | 2020-06-20 21:42 | NUR ---
Report given to Porsha (RN) regarding patient. Patient nahomy be transferred to Room 285.
--- NOTE | 2020-06-20 21:59 | Consultation ---
DATE OF CONSULTATION: Cardiac Consultation REASON FOR CONSULTATION: Congestive heart failure. HISTORY OF PRESENT ILLNESS: An 86-year-old gentleman, who is very very well known to me. The patient does have chronic congestive heart failure with very low ejection fraction in the 20s, severe calcified three-vessel coronary artery disease, chronic atrial fibrillation, hypertension, hyperlipidemia, diabetes mellitus, prostate problem, and GERD. The patient in June 30, 2019, had biventricular defibrillator placed in. The patient refused evaluation for coronary artery bypass surgery and want to be treated medically. He is on very very appropriate medical therapy with Entresto, large dose of beta-torsten. He is on statin and he is also on oral anticoagulation. The patient's baseline is class 3 and some time class 4 heart failure-like symptoms. The patient came to this institution with worsening shortness of breath, chest pressure, chest tightness and cough and phlegm. His chest x-ray consistent with pulmonary edema. His BNP only at 520. His first set of cardiac enzyme is normal. Because of the presentation, the patient placed in the COVID observation unit. He had COVID test, which is still pending. In summary, the patient's symptoms are progressive worsening shortness of breath, class 4 heart failure, currently with no orthopnea, cough, paroxysmal nocturnal dyspnea. REVIEW OF SYSTEMS: GENERAL: He denied having any fever, any chills. HEENT: The patient does have decreased hearing. PULMONARY AND CARDIAC: Class 4 heart failure-like symptoms with orthopnea, paroxysmal nocturnal dyspnea, cough, and secretion. GI: Reasonable appetite. No hematemesis. No melena. HEMATOLOGY: Easy bruising, but no bleeding. : Increased frequency of urination and dribbling of the urine. MUSCULOSKELETAL: Occasional back pain, peripheral vascular leg edema. NEUROLOGICAL: Good speech, good memory, slow gait and walking with precaution. No localized deficits. HOME MEDICATIONS: Include Eliquis 5 mg twice a day, pravastatin 20 mg a day, Entresto 24/ one tablet twice a day, digoxin 0.125 mg a day, metoprolol succinate 100 mg daily, furosemide 40 mg daily, glipizide 10 mg a day, Flomax 0.4 mg a day, and omeprazole 20 mg a day. ALLERGIES: NONE. PAST MEDICAL HISTORY: 1. Advanced congestive heart failure with ejection fraction of less than 20%. 2. Severe three-vessel calcified coronary artery disease, confirmed by cardiac catheterization in March 2019, with 100% mid RCA, 95% LAD, 90% diagonal, 90% mid circumflex. 3. Chronic atrial fibrillation. 4. Hypertension. 5. Hyperlipidemia. 6. Diabetes mellitus. 7. Sleep apnea. 8. GERD. 9. Prostate problem, benign prostatic hypertrophy. 10. Right shoulder rotator cuff surgery. FAMILY HISTORY: Mother in her 70s with complication of congestive heart failure. Father in his 80s, sudden cardiac . No brother. He lost his sister to congestive heart failure and diabetes complication. Two healthy sons. No daughters. SOCIAL HISTORY: He is . He quit smoking in 1987. He is social alcohol drinker. 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 PHYSICAL EXAMINATION: GENERAL: Well-built gentleman. VITAL SIGNS: Height of 5 feet 10 inches, weight of 205 pounds. Blood pressure 130/80, heart rate of 80 per minute, irregularly irregular of atrial fibrillation, and respiratory rate of 20. HEENT: Pupils are reactive. LABORATORY DATA: Sodium of 142, potassium of 3.6, BUN of 8, and creatinine of 0.8. Troponin of 0.046. BNP of 520. Chest x-ray, cardiomegaly with volume overload. White blood cells count of 8.5, hemoglobin 12.5, hematocrit 39%, and platelet count of 205,000. EKG; atrial fibrillation, nonspecific ST changes. IMPRESSION AND PLAN: 1. Oeklt-oa-gbgdomi systolic heart failure. 2. Advanced severe coronary artery disease. 3. Chronic atrial fibrillation. 4. Decompensation. 5. Diabetes mellitus. 6. Doubt COVID infection. Cardiac rockwell, the patient already given Lasix IV. We will increase his Lasix dose. We will continue Entresto. We will continue his digoxin and metoprolol. Eliquis will be decreased during his stay just in case if he needs central line or other procedure. We will give at dose 2.5 mg twice a day. We will follow the patient's progression with you and further steps to be done as needed. MD DARIUS Patricia/MODL /[id number]
[2020-06-20 22:10] VITALS: BP 134/67
--- NOTE | 2020-06-20 22:30 | NUR ---
RECEIVED THE PATIENT TO THE UNIT FROM ROOM #175 TO ROOM #285.
[2020-06-20 22:45] VITALS: BP 140/75
[2020-06-21] VITALS (8 sets, daily range): BP systolic 117–155; BP diastolic 55–105
[2020-06-21 06:26] LABS: BASOPHILS % 0.4 % (0.0-1.0); EOSINOPHILS # (AUTO) 0.1 (0.0-0.4); EOSINOPHILS % 1.6 % (0.0-6.0); HEMATOCRIT 32.9 % (38.2-49.6); HEMOGLOBIN 10.4 g/dL (14.0-18.0); LYMPHOCYTES # (AUTO) 0.7 (1.0-3.2); LYMPHOCYTES % 8.8 % (18.0-39.1); MEAN CORPUSCULAR HEMOGLOBIN 28.3 pg (28-32); MEAN CORPUSCULAR HGB CONC 31.6 g/dL (31-35); MEAN CORPUSCULAR VOLUME 89.6 fL (81-99); MONOCYTES # (AUTO) 0.9 (0.2-0.8); MONOCYTES % 11.9 % (4.4-11.3); NEUTROPHILS # (AUTO) 5.9 (2.1-6.9); PLATELET COUNT 177 x10e3/uL (140-360); RED BLOOD COUNT 3.67 x10e6/uL (4.3-5.7); RED CELL DISTRIBUTION WIDTH 13.6 % (11.7-14.4)
[2020-06-21 06:40] LABS: ANION GAP 11.3 mmol/L (8-16); BLOOD UREA NITROGEN 11 mg/dL (7-26); BUN/CREATININE RATIO 14 (6-25); CALCIUM 8.4 mg/dL (8.4-10.2); CARBON DIOXIDE 29 mmol/L (22-29); CHLORIDE 106 mmol/L (98-107); CREATININE, SERUM 0.81 mg/dL (0.72-1.25); EST GLOMERULAR FILTRATION RATE > 60 ML/MIN (60-); GLUCOSE 65 mg/dL (74-118); MAGNESIUM 1.5 MG/DL (1.3-2.1); PHOSPHORUS 3.2 MG/DL (2.3-4.7); POTASSIUM 3.3 mmol/L (3.5-5.1); SODIUM 143 mmol/L (136-145)
[2020-06-21] MEDS ORDERED: GLIPIZIDE 5 MG TAB ER PO SCH (08:00)
[2020-06-21] MEDS ORDERED: METOPROLOL TARTRATE 50 MG TAB PO SCH (09:00)
[2020-06-21] MEDS ORDERED: APIXABAN 5 MG TABLET PO SCH (09:00)
[2020-06-21] MEDS ORDERED: VALSARTAN PO SCH (09:00)
[2020-06-21] MEDS ORDERED: VALSARTAN/SACUBITRIL 24MG/26MG 1 EA TAB PO SCH (09:00)
[2020-06-21] MEDS ORDERED: FUROSEMIDE 40 MG TAB PO SCH (09:00)
[2020-06-21] MEDS ORDERED: APIXABAN PO SCH (09:00)
[2020-06-21] MEDS ORDERED: SACUBITRIL PO SCH (09:00)
[2020-06-21] MEDS: PANTOPRAZOLE SOD 40 MG TABEC PO SCH (09:48)
[2020-06-21] MEDS: FUROSEMIDE INJ 10 MG/ML 2 ML VIAL IV SCH ×2 (09:49→16:43)
[2020-06-21] MEDS: VALSARTAN/SACUBITRIL 24MG/26MG 1 EA TAB PO SCH ×2 (09:50→16:43)
[2020-06-21] MEDS: DOCUSATE SODIUM 100 MG CAP PO SCH ×2 (09:50→16:43)
[2020-06-21] MEDS: APIXAB 2.5 MG TABLET PO SCH ×2 (09:50→16:43)
[2020-06-21] MEDS: TAMSULOSIN HCL 0.4 MG CAP PO SCH (09:50)
[2020-06-21] MEDS: CHOLECALCIFEROL 400 UNIT TAB PO SCH (09:52)
[2020-06-21] MEDS: FINASTERIDE 5 MG TAB PO SCH (09:52)
[2020-06-21] MEDS: DIGOXIN 0.125 MG TAB PO SCH (09:52)
[2020-06-21] MEDS: ZINC SULFATE 220 MG CAP PO SCH ×2 (09:52→16:43)
[2020-06-21] MEDS: METOPROLOL TARTRATE 50 MG TAB PO SCH ×2 (09:52→16:52)
[2020-06-21] MEDS: ASCORBIC ACID 500 MG TAB PO SCH ×2 (09:52→16:43)
[2020-06-21] MEDS ORDERED: AZITHROMYCIN 250 MG TAB PO NR (10:15)
[2020-06-21] MEDS ORDERED: POTASSIUM CHLORIDE 20 MEQ TAB CR PO NR (11:43)
--- NOTE | 2020-06-21 12:38 | Diagnostic Imaging Report ---
EXAM: CT Chest WITHOUT intravenous contrast 06/21/2020 11:10 AM INDICATION: Shortness of breath COMPARISON: Chest CT of 02/08/2019, chest radiograph of 06/20/2020 TECHNIQUE: Chest was scanned utilizing a multidetector helical scanner from the lung apex through the level of the adrenal glands without administration of IV contrast. Coronal and sagittal reformations were obtained. Routine protocol was performed. IV CONTRAST: None RADIATION DOSE: Total DLP: 508 mGy*cm. Dose modulation, iterative reconstruction, and/or weight based adjustment of the mA/kV was utilized to reduce the radiation dose to as low as reasonably achievable. COMPLICATIONS: None FINDINGS: LINES/ TUBES: Left chest AICD. LUNGS AND AIRWAYS: The central airways are patent. Multifocal groundglass and consolidative airspace opacities throughout both lungs. Bilateral dependent lower lobe subsegmental atelectasis. PLEURA: Trace right greater than left pleural effusions. No pneumothorax. HEART AND MEDIASTINUM: The thyroid gland is normal. No supraclavicular or axillary lymphadenopathy. Prominent mediastinal lymph nodes measure up to 1.4 cm short axis. No hilar lymphadenopathy. Multichamber cardiomegaly. No pericardial effusion. Atherosclerotic calcifications involve the aorta, coronary arteries, and proximal great vessels. UPPER ABDOMEN: Cholelithiasis without CT evidence of cholecystitis. 1.6 cm left adrenal nodule is low density and consistent with a benign adenoma. BONES: The visualized bony thorax is within normal limits. SOFT TISSUES: Unremarkable. IMPRESSION: Bilateral multifocal groundglass and consolidative opacities consistent with multifocal pneumonia in the proper clinical setting. Cardiomegaly and trace bilateral pleural effusions. Atherosclerotic arterial calcifications including of the coronary arteries. Cholelithiasis without CT evidence of cholecystitis. 1.6 cm left adrenal benign adenoma. Signed by: Sandie Negro MD on 06/21/2020 12:35 PM
--- NOTE | 2020-06-21 13:48 | History and Physical ---
The patient of Dr. Escoto, Dr. Angeles, followed for many years, admitted apparently through the emergency room by Dr. Vazquez. I will follow as interior design consultant I am unable to modify this document HISTORY OF PRESENT ILLNESS: [place] 86-year-old gentleman admitted with cough, productive of bloody sputum, shortness of breath for 2 days, hypoxic on arrival. He has a history of diabetes, well controlled, chronic kidney disease, ventral hernia, benign prostatic hypertrophy, last seen 05/10/2020, history of chronic atrial fibrillation, known severe coronary disease, declined intervention with PTCA and stenting. hISTORY OF PACEMAKER AICD. ALLERGIES: NO KNOWN ALLERGIES. HOME MEDICATIONS: Have included digoxin 0.125 mg, Eliquis 5 mg b.i.d., Entresto 24/ twice a day, finasteride 5 mg, Lasix 40 once a day, glipizide 10 mg, metoprolol 100 mg, Prilosec 20, Pravachol 40, and Flomax 0.4. He has history of skin cancers, diabetes, hyperlipidemia, gout, sleep apnea, peripheral neuropathy, hypertension, gastroesophageal reflux, and BPH. FAMILY HISTORY: Positive for diabetes. 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 Smoked 1 to 1/2 packs a day for 30 years. He has had rotator cuff surgery incision in 2007. He has history of gout. This is a well-developed white male, in no acute distress. Previously echocardiogram had improved to 45%, now down to 25% to 30%. PHYSICAL EXAMINATION: HEAD: Normocephalic and atraumatic. EYES: Extraocular movements intact. LUNGS: Bilateral rales. HEART: Regular rate and rhythm. ABDOMEN: Nontender. EXTREMITIES: Not edematous. ASSESSMENT AND PLAN: Apparently, anemia of chronic disease. Hemoglobin on admission 12.5. Renal function is normal. BNP was 520. Recommend empiric antibiotics in view of his hemoptysis. High risk for bronchoscopy at this time. Therapy for congestive heart failure as per Dr. Escoto. Recommends CT of the chest, diuresis, trial of macrolide. The patient has been admitted to Dr. Cortes according to the records. We will follow as pulmonary interior design consultant MD OSIEL David/MODL /[id number] cc: Dr. George GERMAIN
[2020-06-21] MEDS: POTASSIUM CHLORIDE 20 MEQ TAB CR PO SCH (14:00)
--- NOTE | 2020-06-21 19:10 | NUR ---
Received the patient in report.lyeing in the bed.no pain voiced.stable condition.
--- NOTE | 2020-06-21 21:05 | Consultation ---
DATE OF CONSULTATION: Dr. Cortes will do the H and P. Please change this to a Pulmonary consultation. I was unable to change this on the edit. MD OSIEL David/SUDHIR /[id number]
[2020-06-21] MEDS ORDERED: MAGNESIUM SULFATE 2GM/50ML 50 ML IV ONE (22:45)
[2020-06-21] MEDS ORDERED: POTASSIUM CHLORIDE 20 MEQ TAB CR PO ONE (22:45)
--- NOTE | 2020-06-21 23:52 | History and Physical ---
PRIMARY CARE PHYSICIAN: Nate Bettencourt MD. CONSULTING PHYSICIANS: 1. Nate Bettencourt MD, with Pulmonology. 2. Yung Escoto MD, with Cardiology. CHIEF COMPLAINT: Shortness of breath. HISTORY OF PRESENT ILLNESS: The patient is an 86-year-old male, who admitted via the emergency department with dyspnea for 2 days, hypoxia with an oxygen saturation of 85% on room air in the emergency department, cough productive of bloody sputum. His first bloody sputum was on Thursday prior to arrival and he only had one episode of hemoptysis today. He denies any previous use of oxygen or CPAP at home. PAST MEDICAL HISTORY: Diabetes mellitus, chronic kidney disease, BPH, chronic atrial fibrillation on long-term anticoagulant Eliquis, hyperlipidemia, obstructive sleep apnea, ventral hernia, skin cancer, gout, hypertension, peripheral neuropathy, gastroesophageal reflux disease, CHF with an ejection fraction of 20%, pleural plaques, asbestos exposure, pleural effusion, obesity, severe calcified 3-vessel coronary artery disease. He has refused coronary artery stent placement and CABG. PAST SURGICAL HISTORY: In 2007, he had a left rotator cuff repair. On 06/30/2019, he had a biventricular defibrillator placed. On 02/07/2019, he had ultrasound-guided left thoracentesis with 600 mL removed. FAMILY HISTORY: Mother in her 70s due to complications with congestive heart failure. Father in his 80s with sudden cardiac . 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 Lives with his . Smoked 1/2 to 1 pack per day for 30 years and quit in 1987. He denies any use of illicit drugs. He has a history of drinking 3-4 beers per day most days of the week in the past. He quit drinking alcohol. He denies using an assistive device with walking. ALLERGIES: NO KNOWN ALLERGIES. REVIEW OF SYSTEMS: The patient denies any weight loss, fever, chills, problems with eyes, ears, nose, throat, difficulty urinating, psychiatric problems, chest pain, palpitations, extra swelling of the feet or ankles, problems with joint pain, muscle pain, headache, or dizziness. He mainly complains of dyspnea on exertion and some shortness of breath, cough with blood. States he saw a clinical pharmacologist last week and had some places cryogenically treated. His last bowel movement was on 06/20. Denies nausea, vomiting, diarrhea, or constipation. Known diabetic. Does not see an vault attendant. PHYSICAL EXAMINATION: VITAL SIGNS: Temperature 97.8. He has been afebrile. Pulse 72, blood pressure 128/69, respirations 16, oxygen saturation 100%. Height 5 feet 10 inches, weight 225 pounds, BMI 32.28. GENERAL: He is lying supine in bed, wearing a mass. LUNGS: Clear to auscultation. Respiratory pattern even and nonlabored, has oxygen at 2 L via nasal cannula. HEENT: EOMI. NECK: Supple. No JVD. CARDIOVASCULAR: Regular rate and rhythm without murmur. Peripheral IV. No IV fluids. ABDOMEN: Bowel sounds positive. Soft, nontender. No guarding. EXTREMITIES: With no pitting edema. No clubbing, cyanosis, or marked swelling or signs of DVT. NEUROLOGICAL: GCS 15. Nonfocal. LABORATORY DATA: WBC is 7.64, hemoglobin 10.4, hematocrit 32.9, platelets 177, neutrophils 77%. Sodium 143, potassium 3.3, chloride 106, CO2 of 29, BUN 11, creatinine 0.81, estimated GFR greater than 60, glucose 65. PT 16.5, INR 1.26. D-dimer 526. Fingerstick blood glucose level 74, 59. Lactic acid 1.3, calcium 8.4, phosphorus 3.2, magnesium 1.5. B-type natriuretic peptide 520. Most recently documented hemoglobin A1c was on 01/25/2020 was 4.6%. Most recent lipid panel on 01/25/2020 shows triglyceride 75, cholesterol 138, LDL 78, HDL 41, TSH 2.683. On 06/20 coronavirus PCR not detected. Blood cultures x2 show no growth after 24 hours. IMAGING: On 06/20, chest x-ray showed cardiomegaly, pulmonary interstitial edema, small right pleural effusion, patchy bibasilar opacities, most likely subsegmental atelectasis. Pneumonitis should be excluded clinically. CT of the chest done today showed bilateral multifocal ground-glass and consolidative opacities consistent with multifocal pneumonia in the proper clinical setting. Cardiomegaly and trace bilateral pleural effusions. Atherosclerotic arterial calcifications including the coronary arteries. Cholelithiasis without CT evidence of cholecystitis. A 1.6 cm left adrenal benign adenoma. EKG showed atrial fibrillation with nonspecific ST changes. ASSESSMENT/PLAN: 1. Buakn-vp-ikdvvke class 3-4 systolic congestive heart failure with a history of ejection fraction of 20%. He has been given IV Lasix. He is currently on 20 mg of Lasix b.i.d. Lasix adjustments and cardiac medication changes per Cardiology. Continue Entresto, Digoxin, metoprolol. 2. Pulmonary edema and small right pleural effusion with hemoptysis, and elevated D-dimer. Continue Lasix. Eliquis has been decreased, in case he needs central line or other procedure, 2.5 mg twice a day. 3. Possible multifocal pneumonia, rule out coronavirus disease-2019. 4. Coronavirus PCR collected 06/20 was negative. He is afebrile. Denies shortness of breath at rest. He does have dyspnea on exertion. We will order physical therapy to try to recreate his signs and symptoms. On oxygen at 2 L/minute via nasal cannula. Incentive spirometry. He is on empiric vitamin C, vitamin D and zinc sulfate. Continue low-dose Eliquis. Continue azithromycin 250 mg daily. 5. Severe 3-vessel calcified coronary artery disease. Continue Eliquis. The patient has refused stents and CABG in the past. 6. Chronic atrial fibrillation with heart rate control, heart rate 72. Maintain telemetry. 7. Controlled hypertension with systolic congestive heart failure and chronic kidney disease. Blood pressure 128/69. Continue beta-torsten and Lasix. 8. 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 Monitor fingerstick blood glucose levels before meals and at bedtime. We will change diet from a cardiac diet to an ADA diet. Continue glipizide. 9. Obstructive sleep apnea with obesity, BMI 32.28. The patient does not use CPAP at home, but he does have a CPAP available at the bedside. Dietary restrictions. 10. Hyperlipidemia, on finasteride. 11. Chronic kidney disease, stage unknown. Creatinine 0.81, GFR greater than 60. 12. Acute hypomagnesemia. Magnesium level 1.5. We will give 2 g of magnesium sulfate. 13. Acute hypokalemia. Potassium level 3.3. We will give 40 mEq potassium chloride after the magnesium. 14. Gastroesophageal reflux disease/prophylaxis, Protonix and Eliquis. H and P billing code [id number]. Time spent 60 minutes. Dictated by Bridger Venegas, LAISHA MD YESICA Castro/SUDHIR /[id number]
[2020-06-22] VITALS (8 sets, daily range): BP systolic 103–131; BP diastolic 62–85
[2020-06-22 05:40] LABS: BASOPHILS % 0.8 % (0.0-1.0); EOSINOPHILS # (AUTO) 0.2 (0.0-0.4); EOSINOPHILS % 4.5 % (0.0-6.0); HEMATOCRIT 34.5 % (38.2-49.6); HEMOGLOBIN 10.7 g/dL (14.0-18.0); LYMPHOCYTES % 18.6 % (18.0-39.1); MEAN CORPUSCULAR HEMOGLOBIN 28.1 pg (28-32); MEAN CORPUSCULAR VOLUME 90.6 fL (81-99); MONOCYTES # (AUTO) 0.7 (0.2-0.8); MONOCYTES % 12.9 % (4.4-11.3); NEUTROPHILS # (AUTO) 3.2 (2.1-6.9); NEUTROPHILS % 62.8 % (38.7-80.0); PLATELET COUNT 198 x10e3/uL (140-360); RED BLOOD COUNT 3.81 x10e6/uL (4.3-5.7); RED CELL DISTRIBUTION WIDTH 13.5 % (11.7-14.4)
--- NOTE | 2020-06-22 05:55 | NUR ---
Rested well during night.no pain voiced.uses ics.
[2020-06-22 05:58] LABS: ALBUMIN 2.7 g/dL (3.5-5.0); ALBUMIN/GLOBULIN RATIO 0.9 (0.8-2.0); ALKALINE PHOSPHATASE 47 IU/L (40-150); ANION GAP 13.2 mmol/L (8-16); BLOOD UREA NITROGEN 14 mg/dL (7-26); BUN/CREATININE RATIO 15 (6-25); CALCIUM 8.6 mg/dL (8.4-10.2); CARBON DIOXIDE 32 mmol/L (22-29); CHLORIDE 104 mmol/L (98-107); CREATININE, SERUM 0.95 mg/dL (0.72-1.25); EST GLOMERULAR FILTRATION RATE > 60 ML/MIN (60-); POTASSIUM 4.2 mmol/L (3.5-5.1); SODIUM 145 mmol/L (136-145)
[2020-06-22 06:00] LABS: ALANINE AMINOTRANSFERASE < 6 IU/L (0-55)
[2020-06-22 06:01] LABS: GLUCOSE 57 mg/dL (74-118)
--- NOTE | 2020-06-22 06:10 | NUR ---
Blood sugar noted 57.provided a cup of orange juice.stable condition.keep monitor the patient.
--- NOTE | 2020-06-22 07:08 | NUR ---
Bed side shift report given to oncoming RN.stable condition.
[2020-06-22] MEDS: PANTOPRAZOLE SOD 40 MG TABEC PO SCH (07:30)
[2020-06-22] MEDS: GLIPIZIDE 5 MG TAB ER PO SCH (08:00)
[2020-06-22] MEDS: DOCUSATE SODIUM 100 MG CAP PO SCH ×2 (09:00→16:30)
[2020-06-22] MEDS: ASCORBIC ACID 500 MG TAB PO SCH ×2 (09:00→16:31)
[2020-06-22] MEDS: METOPROLOL TARTRATE 50 MG TAB PO SCH ×2 (09:00→16:31)
[2020-06-22] MEDS: VALSARTAN/SACUBITRIL 24MG/26MG 1 EA TAB PO SCH ×2 (09:00→16:30)
[2020-06-22] MEDS: CHOLECALCIFEROL 400 UNIT TAB PO SCH (09:00)
[2020-06-22] MEDS: AZITHROMYCIN 250 MG TAB PO SCH (09:00)
[2020-06-22] MEDS: FUROSEMIDE INJ 10 MG/ML 2 ML VIAL IV SCH ×2 (09:00→16:30)
[2020-06-22] MEDS: POTASSIUM CHLORIDE 20 MEQ TAB CR PO SCH (09:00)
[2020-06-22] MEDS: DIGOXIN 0.125 MG TAB PO SCH (09:00)
[2020-06-22] MEDS: FINASTERIDE 5 MG TAB PO SCH (09:00)
[2020-06-22] MEDS: TAMSULOSIN HCL 0.4 MG CAP PO SCH (09:00)
[2020-06-22] MEDS: APIXAB 2.5 MG TABLET PO SCH ×2 (09:00→16:30)
[2020-06-22] MEDS: ZINC SULFATE 220 MG CAP PO SCH ×2 (10:23→16:31)
--- NOTE | 2020-06-22 19:05 | NUR ---
walking rounds complete, report given to oncoming nurse.
[2020-06-23] VITALS (7 sets, daily range): BP systolic 110–124; BP diastolic 57–72
[2020-06-23 06:01] LABS: BASOPHILS % 0.6 % (0.0-1.0); EOSINOPHILS # (AUTO) 0.3 (0.0-0.4); EOSINOPHILS % 5.1 % (0.0-6.0); HEMATOCRIT 34.9 % (38.2-49.6); LYMPHOCYTES % 18.6 % (18.0-39.1); MEAN CORPUSCULAR HEMOGLOBIN 28.1 pg (28-32); MEAN CORPUSCULAR HGB CONC 31.5 g/dL (31-35); MEAN CORPUSCULAR VOLUME 89.3 fL (81-99); MONOCYTES # (AUTO) 0.7 (0.2-0.8); NEUTROPHILS # (AUTO) 3.3 (2.1-6.9); NEUTROPHILS % 62.5 % (38.7-80.0); PLATELET COUNT 224 x10e3/uL (140-360); RED BLOOD COUNT 3.91 x10e6/uL (4.3-5.7); RED CELL DISTRIBUTION WIDTH 13.4 % (11.7-14.4)
[2020-06-23 06:40] LABS: ALANINE AMINOTRANSFERASE 6 IU/L (0-55); ALBUMIN 2.7 g/dL (3.5-5.0); ALBUMIN/GLOBULIN RATIO 0.8 (0.8-2.0); ALKALINE PHOSPHATASE 52 IU/L (40-150); ANION GAP 12.3 mmol/L (8-16); BLOOD UREA NITROGEN 14 mg/dL (7-26); BUN/CREATININE RATIO 15 (6-25); CALCIUM 8.8 mg/dL (8.4-10.2); CARBON DIOXIDE 31 mmol/L (22-29); CHLORIDE 104 mmol/L (98-107); CREATININE, SERUM 0.91 mg/dL (0.72-1.25); EST GLOMERULAR FILTRATION RATE > 60 ML/MIN (60-); GLUCOSE 70 mg/dL (74-118); POTASSIUM 4.3 mmol/L (3.5-5.1); SODIUM 143 mmol/L (136-145)
--- NOTE | 2020-06-23 06:51 | Diagnostic Imaging Report ---
EXAMINATION: CHEST SINGLE (PORTABLE) INDICATION: CHF. Hypoxia. COMPARISON: Chest x-ray dated 06/20/2020. FINDINGS: LINES/TUBES:Left chest AICD LUNGS:, Unchanged in position. Interval decrease in bilateral pulmonary venous congestion. Patchy density remains in the lower lobes, right greater than left. PLEURA:Bilateral pleural effusions, right greater than left. No pneumothorax. MEDIASTINUM:Cardiomediastinal silhouette is moderately enlarged. BONES/SOFT TISSUES:No acute osseous injury. ABDOMEN:No free air under the diaphragm. IMPRESSION: Interval decrease in bilateral pulmonary venous congestion with persistent bilateral lower lobe patchy densities and bilateral pleural effusions, right greater than left. Signed by: Dr. Yossi Robles M.D. on 06/23/2020 6:48 AM
--- NOTE | 2020-06-23 06:51 | NUR ---
report given to day nurse.
--- NOTE | 2020-06-23 07:20 | NUR ---
PATIENT IN BED RESTING WITH EYES CLOSED, NO DISTRESS NOTED. TELEMETRY B[address] BED IN LOWER POSITION, CALL LIGHT AT REACH.
[2020-06-23] MEDS: PANTOPRAZOLE SOD 40 MG TABEC PO SCH (07:30)
[2020-06-23] MEDS: GLIPIZIDE 5 MG TAB ER PO SCH (08:00)
[2020-06-23] MEDS: APIXAB 2.5 MG TABLET PO SCH ×2 (09:21→17:15)
[2020-06-23] MEDS: DOCUSATE SODIUM 100 MG CAP PO SCH ×2 (09:21→17:15)
[2020-06-23] MEDS: FUROSEMIDE INJ 10 MG/ML 2 ML VIAL IV SCH ×2 (09:21→17:15)
[2020-06-23] MEDS: TAMSULOSIN HCL 0.4 MG CAP PO SCH (09:21)
[2020-06-23] MEDS: VALSARTAN/SACUBITRIL 24MG/26MG 1 EA TAB PO SCH ×2 (09:21→17:15)
[2020-06-23] MEDS: AZITHROMYCIN 250 MG TAB PO SCH (09:22)
[2020-06-23] MEDS: FINASTERIDE 5 MG TAB PO SCH (09:22)
[2020-06-23] MEDS: ZINC SULFATE 220 MG CAP PO SCH ×2 (09:22→17:16)
[2020-06-23] MEDS: ASCORBIC ACID 500 MG TAB PO SCH ×2 (09:22→17:16)
[2020-06-23] MEDS: POTASSIUM CHLORIDE 20 MEQ TAB CR PO SCH (09:22)
[2020-06-23] MEDS: CHOLECALCIFEROL 400 UNIT TAB PO SCH (09:22)
[2020-06-23] MEDS: DIGOXIN 0.125 MG TAB PO SCH (09:22)
[2020-06-23] MEDS: METOPROLOL TARTRATE 50 MG TAB PO SCH ×2 (09:22→17:16)
--- NOTE | 2020-06-23 11:10 | NUR ---
PATIENT OUT OF BED TO RECLINING CHAIR WATCHING TV. CALL LIGHT AT REACH.
--- NOTE | 2020-06-23 11:41 | NUR ---
DR. CHACKO CLEARED PATIENT FOR DISCHARGE.
--- NOTE | 2020-06-23 15:31 | NUR ---
PATIENT AMBULATING IN HALLWAY BY SELF, NO COMPLAIN VOICED. WILL CONTINUE TO MONITOR.
[2020-06-23] MEDS ORDERED: METOPROLOL TART50 MG PO (16:57)
[2020-06-23] MEDS ORDERED: POTASSIUM CHLO10 ME1 PO (16:57)
[2020-06-23] MEDS ORDERED: ELIQUIS2.5 MG PO (16:57)
[2020-06-23] MEDS ORDERED: GLIPIZIDE XL5 MG PO (16:57)
[2020-06-23] MEDS ORDERED: ACETAMINOPHEN325 M1 PO (16:57)
--- NOTE | 2020-06-23 18:40 | Progress Note ---
DATE: 06/22/2020 SUBJECTIVE: The patient is less short of breath. No longer on oxygen. He still has an occasional cough 2 to 3 times a day. He does have some phlegm but no hemoptysis. Has a poor appetite. Did have a BM today. OBJECTIVE: VITAL SIGNS: Temperature 97.5, heart rate 70, blood pressure 123/69, respirations 20, oxygen saturation 94%. GENERAL: The patient is supine, wearing a mask. LUNGS: Clear to auscultation. Respiratory pattern even and nonlabored. He is no longer on supplemental oxygen. He is breathing on room air. HEENT: EOMI. NECK: Supple. No JVD. CARDIOVASCULAR: Regular rate and rhythm without murmur. Peripheral IV. No IV fluids. ABDOMEN: Bowel sounds positive. Soft, nontender. No guarding. EXTREMITIES: No pitting edema. No clubbing, cyanosis, or marked swelling or signs of DVT. NEUROLOGIC: GCS 15. Nonfocal. LABORATORY DATA: WBCs 5.12, hemoglobin 10.7, hematocrit 34.5, platelets 198. Sodium 145, potassium 4.2, chloride 104, CO2 32, BUN 14, creatinine 0.95, estimated GFR greater than 60, glucose 57, calcium 8.6, magnesium 2. Total bilirubin 0.8, AST 12, ALT less than 6, alkaline phosphatase 47, total protein 5.8, albumin 2.7 fingerstick blood glucose levels 74, 108, 126. No new imaging studies. ASSESSMENT AND PLAN: 1. 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 He has been given IV Lasix 20 mg b.i.d. Continue current cardiac medications as per Cardiology; Entresto, digoxin, and metoprolol. 2. Pulmonary edema and small right pleural effusion with hemoptysis and elevated D-dimer. Eliquis was decreased. He was likely on 5 mg p.o. b.i.d. at home. He is on 2 mg p.o. b.i.d. here. Continue Lasix. No further hemoptysis. This has resolved and shortness of breath has improved. 3. Possible multifocal pneumonia, rule out COVID-19. Coronavirus PCR collected 06/20 was negative. He remains afebrile. Oxygen was weaned off. Azithromycin discontinued. 4. Severe three vessel calcified coronary artery disease. Continue Eliquis. The patient reiterates that he does not want stents or CABG. 5. Chronic atrial fibrillation with heart rate controlled. Heart rate is 70. Maintain telemetry. 6. Controlled hypertension with systolic congestive heart failure and chronic kidney disease. Blood pressure 123/69. Continue beta-torsten and Lasix. 7. 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 Continue diabetic diet and glipizide. Fingerstick blood glucose levels normal. 8. Obstructive sleep apnea with obesity, BMI 32.28. Dietary restrictions. 9. Hyperlipidemia, on finasteride. 10. Chronic kidney disease, stage unknown. Creatinine 0.96, GFR greater than 60. 11. Acute hypomagnesemia, resolved. Magnesium level 2.0 (1.5). 12. Acute hypokalemia, resolved. Potassium level 4.2 (3.3). Continue Lasix and monitor potassium level. 13. Gastroesophageal reflux disease/prophylaxis Protonix and Eliquis. Billing code [id number]. Time spent 35 minutes. Dictated by Bridger Venegas NP Giuliano Cortes MD HWP/MODL /[id number]
--- NOTE | 2020-06-23 18:40 | NUR ---
PATIENT DISCHARGED HOME. DISCHARGE INSTRUCTIONS, PRESCRIPTIONS, AND FOLLOW UP GIVEN TO PATIENT, HE VERBALIZED UNDERSTANDING. IV TO LEFT FOREARM REMOVED WITH TIP INTACT. ALL PERSONAL ITEMS TAKEN WITH PATIENT. LEFT UNIT PER WHEEL CHAIR TO FRONT LOBBY IN STABLE CONDITION.
--- NOTE | 2020-06-23 18:45 | Discharge Summary ---
PRIMARY CARE PHYSICIAN: Nate Bettencourt MD CONSULTING PHYSICIANS: 1. Dr. Bettencourt with Pulmonology. 2. Dr. Yung Escoto with Cardiology. CHIEF COMPLAINT: Shortness of breath. HOSPITAL COURSE: The patient is an 86-year-old male, who admitted via the emergency department with dyspnea for 2 days. He had hypoxia with an oxygen saturation of 85% on room air. In the ER. Cough was productive of bloody sputum, which started on the Thursday prior to arrival. He had one episode of hemoptysis on 06/21. He denies any previous use of oxygen or CPAP at home. Please see history and physical that was dictated on 06/21/2020, for past medical history, past surgical history, family history, social history, as well as admitting vital signs, physical examination, laboratory data, and imaging. ADMITTING DIAGNOSES: Include: 1. [id number], class 3 to 4 systolic congestive heart failure with ICD in situ with a history of ejection fraction of 20%. 2. Pulmonary edema and small right pleural effusion with hemoptysis and elevated D-dimer. 3. Possible multifocal pneumonia, rule out Coronavirus disease 2018. 4. Severe 3-vessel calcified coronary artery disease. 5. Chronic atrial fibrillation with heart rate controlled. 6. Controlled hypertension with systolic congestive heart failure and chronic kidney disease. 7. 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 8. Obstructive sleep apnea with obesity, BMI of 32.28. 9. Hyperlipidemia. 10. Chronic kidney disease, stage unknown. 11. Acute hypomagnesemia. 12. Acute hypokalemia. 13. Gastroesophageal reflux disease. DISCHARGE DIAGNOSES: 1. [id number] class 3 to 4 systolic congestive heart failure with a history of ejection fraction 20% and ICD in situ. 2. Pulmonary edema and small right pleural effusion, status post hemoptysis. 3. Severe 3-vessel calcified coronary artery disease. 4. Chronic atrial fibrillation with heart rate controlled. 5. Controlled hypertension with systolic congestive heart failure and chronic kidney disease. 6. 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 7. Obstructive sleep apnea with obesity, BMI of 32.28. 8. Hyperlipidemia. 9. Chronic kidney disease, stage unknown. 10. Gastroesophageal reflux disease. Generally, the patient was given IV Lasix. His CT of the chest did show multifocal ground-glass and consolidative opacities consistent with multifocal pneumonia. However, he was not diagnosed with pneumonia while here and in fact quickly improved. He has minimal cough, maybe once or twice a day and is weaned off his oxygen relatively quickly. He will be going home on oral Lasix. Today, on the day of discharge, temperature 97.5, heart rate 72, respirations 16, blood pressure 110/63, pulse oximetry 99%. WBCs 5.32, hemoglobin 11, hematocrit 34.9, platelets 224. Sodium 143, potassium 4.3, chloride 104, CO2 of 31. BUN 14, creatinine 0.91, estimated GFR greater than 60. Glucose 70. Fingerstick blood glucose level last night 135, calcium 8.8, total bilirubin 0.7. AST 13, ALT 6, alkaline phosphatase 52, total protein 5.9, albumin 2.7. Coronavirus PCR collected on 06/20, was negative. Blood cultures x2 collected on 06/20, showed no growth after 72 hours. Chest x-ray done this morning shows interval decrease in bilateral pulmonary venous congestion with persistent bilateral lower lobe patchy densities and bilateral pleural effusions, right greater than left. On review of systems, the patient has no new complaints. States he feels much better. He has been out of bed, walking in the [place]anchez. Case was discussed with Dr. Escoto and we will continue his Eliquis 2.5 mg p.o. b.i.d. Prescriptions will be provided for this as well as metoprolol tartrate 100 mg p.o. b.i.d. Potassium chloride 10 mEq p.o. daily as he remains on Lasix. Sending him home on 40 mg p.o. daily, which is his home dose. Prescription for glipizide XL 5 mg p.o. daily. He will continue digoxin 125 mcg p.o. daily. Finasteride 5 mg p.o. daily. Losartan 25 mg p.o. daily. Nitrostat 0.4 mg sublingual q.5 minutes p.r.n. for chest pain. Omeprazole 20 mg. Entresto 24/26 tablet 2 tabs p.o. daily, Flomax 0.4 mg p.o. daily. The patient is to follow up with his PCP, Dr. Bettencourt in 1 to 2 weeks. Follow up with Dr. Escoto as directed. Continue diabetic diet. Activity level as tolerated. Dictated by Bridger Venegas, PLANT WORK[employer] MD YESICA Castro/SUDHIR /[id number]
== END 2020-06-23 18:38 | disposition home or self-care (01) | DRG 291 ==
LOC: ER 09:01 → ERHOLD 09:34 → IMCU 11:33 → MED/SURG3 22:42
PROVIDERS: ADMIT Internal Medicine; ATTEND Internal Medicine
DX: I13.0 Hypertensive heart and chronic kidney disease with heart failure and stage 1 through stage 4 chronic kidney disease, or unspecified chronic kidney disease (principal); I50.23 Acute on chronic systolic (congestive) heart failure; I48.20 Chronic atrial fibrillation, unspecified; R04.2 Hemoptysis; N18.9 Chronic kidney disease, unspecified; R09.02 Hypoxemia; K21.9 Gastro-esophageal reflux disease without esophagitis; E78.5 Hyperlipidemia, unspecified; N40.0 Benign prostatic hyperplasia without lower urinary tract symptoms; Z95.810 Presence of automatic (implantable) cardiac defibrillator; I25.10 Atherosclerotic heart disease of native coronary artery without angina pectoris; Z82.49 Family history of ischemic heart disease and other diseases of the circulatory system; Z83.3 Family history of diabetes mellitus; D63.8 Anemia in other chronic diseases classified elsewhere; E11.42 Type 2 diabetes mellitus with diabetic polyneuropathy; E11.22 Type 2 diabetes mellitus with diabetic chronic kidney disease; G47.33 Obstructive sleep apnea (adult) (pediatric); E66.9 Obesity, unspecified; Z68.32 Body mass index [BMI] 32.0-32.9, adult; E83.42 Hypomagnesemia; E87.6 Hypokalemia; Z11.59 Encounter for screening for other viral diseases; Z79.84 Long term (current) use of oral hypoglycemic drugs
CPT/HCPCS: 36415; 71045; 71250; 80048; 80053; 82550; 82553; 82948; 83605; 83735; 83880; 84100; 84484; 85025; 85379; 85610; 87040; 87071; 87205; 93005; 93306; 97139; 99285; J1940; J3475; U0002

== ENCOUNTER → 2020-12-24 | Outpatient (CLI) | payer MEDICARE, BC ==
[~2020-12-24] MED LIST changes: +ACETAMINOPHEN325 M1 PO; +DIGOXIN125 MCG PO; +ELIQUIS2.5 MG PO; +ELIQUIS5 M1 PO; +ENTRESTO 24 MG1 EACH PO; +FINASTERIDE5 MG PO; +FLOMAX0.4 MG PO; +GLIPIZIDE ER5 MG; +GLIPIZIDE XL5 MG PO; +METOPROLOL TAR100 MG PO; +OMEPRAZOLE20 MG; +POTASSIUM CHLO10 ME1 PO; +PRAVACHOL40 MG PO
[2020-12-24 09:39] LABS: ANION GAP 14.1 mmol/L (8-16); CALCIUM 8.8 mg/dL (8.4-10.2); CREATININE, SERUM 1.17 mg/dL (0.72-1.25); POTASSIUM 4.1 mmol/L (3.5-5.1)
== END ==
LOC: LAB 08:41
PROVIDERS: ATTEND Internal Medicine Pulmonary Disease
DX: I10 Essential (primary) hypertension (principal); E11.649 Type 2 diabetes mellitus with hypoglycemia without coma
CPT/HCPCS: 36415; 80048; 83036

== ENCOUNTER → 2021-07-02 | Outpatient (CLI) | payer MEDICARE, BC ==
[2021-07-02 08:32] LABS: BASOPHILS # (AUTO) 0.1 (0.0-0.1); BASOPHILS % 1.2 % (0.0-1.0); EOSINOPHILS # (AUTO) 0.2 (0.0-0.4); EOSINOPHILS % 4.1 % (0.0-6.0); HEMATOCRIT 39.9 % (38.2-49.6); HEMOGLOBIN 12.5 g/dL (14.0-18.0); LYMPHOCYTES # (AUTO) 1.1 (1.0-3.2); LYMPHOCYTES % 21.3 % (18.0-39.1); MEAN CORPUSCULAR HEMOGLOBIN 27.8 pg (28-32); MEAN CORPUSCULAR HGB CONC 31.3 g/dL (31-35); MEAN CORPUSCULAR VOLUME 88.9 fL (81-99); MONOCYTES # (AUTO) 0.6 (0.2-0.8); NEUTROPHILS # (AUTO) 3.2 (2.1-6.9); NEUTROPHILS % 62.2 % (38.7-80.0); PLATELET COUNT 158 x10e3/uL (140-360); RED BLOOD COUNT 4.49 x10e6/uL (4.3-5.7); RED CELL DISTRIBUTION WIDTH 14.6 % (11.7-14.4)
[2021-07-02 09:03] LABS: ALBUMIN 3.7 g/dL (3.5-5.0); ALBUMIN/GLOBULIN RATIO 1.1 (0.8-2.0); CALCIUM 8.7 mg/dL (8.4-10.2); CHOL/HDL RATIO 2.7 (3.9-4.7); CREATININE, SERUM 1.08 mg/dL (0.72-1.25)
== END ==
LOC: RAD 07:53
PROVIDERS: ATTEND Internal Medicine Pulmonary Disease
DX: J90 Pleural effusion, not elsewhere classified (principal)
CPT/HCPCS: 36415; 71046; 80053; 80061; 82044; 83036; 85025

== ENCOUNTER → 2021-11-20 | Day surgery (SDC) | payer MEDICARE, BC ==
[2021-11-18 08:56] LABS: BASOPHILS # (AUTO) 0.1 (0.0-0.1); BASOPHILS % 1.2 % (0.0-1.0); EOSINOPHILS # (AUTO) 0.3 (0.0-0.4); EOSINOPHILS % 3.9 % (0.0-6.0); HEMATOCRIT 40.7 % (38.2-49.6); HEMOGLOBIN 12.6 g/dL (14.0-18.0); LYMPHOCYTES # (AUTO) 1.4 (1.0-3.2); LYMPHOCYTES % 19.9 % (18.0-39.1); MEAN CORPUSCULAR HEMOGLOBIN 28.8 pg (28-32); MEAN CORPUSCULAR VOLUME 93.1 fL (81-99); MONOCYTES # (AUTO) 0.7 (0.2-0.8); MONOCYTES % 10.6 % (4.4-11.3); NEUTROPHILS # (AUTO) 4.4 (2.1-6.9); PLATELET COUNT 154 x10e3/uL (140-360); RED BLOOD COUNT 4.37 x10e6/uL (4.3-5.7); RED CELL DISTRIBUTION WIDTH 13.5 % (11.7-14.4)
[~2021-11-20] MED LIST changes: +DEXTROSE 5% 250ML 250 ML IV ONE; +LIDOCAINE HCL 2% LOCAL INJ 5 ML SDV VIAL INJ ONE; +PROPOFOL IV EMULSION 10 MG/ML 20 ML VIAL ONE; +SODIUM CHLORIDE 0.9% 50ML 50 ML ONE
[2021-11-20 10:30] VITALS: BP 130/68
== END | disposition home or self-care (01) ==
LOC: OR 08:04
PROVIDERS: ATTEND Internal Medicine Gastroenterology
DX: K29.70 Gastritis, unspecified, without bleeding (principal); K31.7 Polyp of stomach and duodenum; K44.9 Diaphragmatic hernia without obstruction or gangrene; K20.90 Esophagitis, unspecified without bleeding; R19.5 Other fecal abnormalities; I11.0 Hypertensive heart disease with heart failure; I50.9 Heart failure, unspecified; E11.9 Type 2 diabetes mellitus without complications; E78.00 Pure hypercholesterolemia, unspecified; H91.90 Unspecified hearing loss, unspecified ear; Z01.810 Encounter for preprocedural cardiovascular examination; Z01.812 Encounter for preprocedural laboratory examination; Z20.822 Contact with and (suspected) exposure to COVID-19; Z79.02 Long term (current) use of antithrombotics/antiplatelets; Z79.84 Long term (current) use of oral hypoglycemic drugs; Z79.899 Other long term (current) drug therapy; Z68.31 Body mass index [BMI] 31.0-31.9, adult; Z95.810 Presence of automatic (implantable) cardiac defibrillator
CPT/HCPCS: 36415 ×2; 43239; 82948; 85025; 88305; 88312; 88342; 93005; J7070; U0002; 88304; J2001

== ENCOUNTER → 2022-01-15 | Outpatient (CLI) | payer MEDICARE, BC ==
[~2022-01-15] MED LIST changes: -DEXTROSE 5% 250ML 250 ML IV ONE; -LIDOCAINE HCL 2% LOCAL INJ 5 ML SDV VIAL INJ ONE; -PROPOFOL IV EMULSION 10 MG/ML 20 ML VIAL ONE; -SODIUM CHLORIDE 0.9% 50ML 50 ML ONE
[2022-01-15 11:22] LABS: BASOPHILS # (AUTO) 0.1 (0.0-0.1); BASOPHILS % 1.3 % (0.0-1.0); EOSINOPHILS # (AUTO) 0.2 (0.0-0.4); EOSINOPHILS % 3.5 % (0.0-6.0); LYMPHOCYTES # (AUTO) 1.2 (1.0-3.2); LYMPHOCYTES % 25.7 % (18.0-39.1); MEAN CORPUSCULAR HEMOGLOBIN 28.9 pg (28-32); MEAN CORPUSCULAR VOLUME 93.3 fL (81-99); MONOCYTES # (AUTO) 0.5 (0.2-0.8); MONOCYTES % 9.8 % (4.4-11.3); NEUTROPHILS # (AUTO) 2.7 (2.1-6.9); NEUTROPHILS % 59.5 % (38.7-80.0); PLATELET COUNT 141 x10e3/uL (140-360); RED CELL DISTRIBUTION WIDTH 14.1 % (11.7-14.4)
[2022-01-15 11:57] LABS: % IRON SATURATION 24 % (15-50); IRON 81 ug/dL (65-175); TOTAL IRON BINDING CAPACITY 337 ug/dL (261-478); TRANSFERRIN 241 mg/dL (174-364)
== END ==
LOC: LAB 10:56
PROVIDERS: ATTEND Internal Medicine Pulmonary Disease
DX: K92.1 Melena (principal)
CPT/HCPCS: 36415; 82270; 83036; 83540; 84466; 85025

== ENCOUNTER 2022-01-28 12:02 | Emergency (ER) | payer MEDICARE, BC ==
[~2022-01-28] VITALS: Ht 170.2 cm; Wt 90.7 kg
[~2022-01-28 12:02] MED LIST changes: +PROTONIX20 MG PO
[2022-01-28 12:36] LABS: BASOPHILS % 0.5 % (0.0-1.0); EOSINOPHILS # (AUTO) 0.1 (0.0-0.4); EOSINOPHILS % 2.3 % (0.0-6.0); HEMOGLOBIN 13.6 g/dL (14.0-18.0); MEAN CORPUSCULAR HEMOGLOBIN 29.2 pg (28-32); MEAN CORPUSCULAR HGB CONC 32.4 g/dL (31-35); MEAN CORPUSCULAR VOLUME 90.3 fL (81-99); MONOCYTES # (AUTO) 0.9 (0.2-0.8); MONOCYTES % 20.9 % (4.4-11.3); NEUTROPHILS # (AUTO) 2.3 (2.1-6.9); NEUTROPHILS % 53.1 % (38.7-80.0); PLATELET COUNT 114 x10e3/uL (140-360); RED BLOOD COUNT 4.65 x10e6/uL (4.3-5.7); RED CELL DISTRIBUTION WIDTH 13.8 % (11.7-14.4)
[2022-01-28 12:39] LABS: CLARITY,URINE CLEAR (CLEAR); COLOR,URINE YELLOW (YELLOW); LEUKOCYTE ESTERASE ,URINE NEGATIVE (NEGATIVE); NITRITE,URINE NEGATIVE (NEGATIVE)
[2022-01-28 12:40] LABS: KETONES,URINE TRACE (NEGATIVE); PROTEIN,URINE DIPSTICK 2+ (NEGATIVE); URINE UROBILINOGEN >=8 mg/dL (0.2 - 1)
[2022-01-28 12:53] LABS: EPITHELIAL CELLS,URINE RARE /LPF; MUCUS,URINE FEW (RARE); RBC,URINE 0-5 /HPF (0-5); WBC,URINE (MAN) 0-5 /HPF (0-5)
[2022-01-28 12:56] LABS: ALBUMIN 3.7 g/dL (3.5-5.0); ANION GAP 13.2 mmol/L (8-16); CALCIUM 9.3 mg/dL (8.4-10.2); CREATININE, SERUM 1.14 mg/dL (0.72-1.25); POTASSIUM 4.2 mmol/L (3.5-5.1)
[2022-01-28] MEDS ORDERED: SODIUM CHLORIDE 0.9% 50ML 50 ML ONE (13:35)
[2022-01-28] MEDS ORDERED: IOPAMIDOL 370 MG/ML 200 ML INFUS..BTL INJ ONE (13:35)
[2022-01-28] MEDS ORDERED: KETOROLAC TROMETHAMINE 30 MG/ML VIAL IV STA (14:37)
[2022-01-28] MEDS ORDERED: ULTRAM 50MG50 MG PO (15:34)
== END 2022-01-28 16:14 | disposition home or self-care (01) ==
LOC: ER 12:05
DX: R10.32 Left lower quadrant pain (principal); M25.552 Pain in left hip; I10 Essential (primary) hypertension; E11.9 Type 2 diabetes mellitus without complications; E78.5 Hyperlipidemia, unspecified; I50.9 Heart failure, unspecified; K21.9 Gastro-esophageal reflux disease without esophagitis; I48.91 Unspecified atrial fibrillation; R94.31 Abnormal electrocardiogram [ECG] [EKG]; Z20.822 Contact with and (suspected) exposure to COVID-19; Z95.810 Presence of automatic (implantable) cardiac defibrillator
CPT/HCPCS: 36415; 72100; 73502; 74177; 80053; 81001; 83690; 85025; 93005; 99284; J1885; Q9967; U0002

== ENCOUNTER → 2022-03-27 | Outpatient (CLI) | payer MEDICARE, BC ==
[~2022-03-27] MED LIST changes: +ULTRAM 50MG50 MG PO
== END ==
LOC: LAB 10:05
PROVIDERS: ATTEND Internal Medicine Pulmonary Disease
DX: E13.8 Other specified diabetes mellitus with unspecified complications (principal)
CPT/HCPCS: 83036